=== PATIENT | female | born 1980 | race Two or more races ===

== ENCOUNTER 2024-08-29 09:25 | Inpatient (IN) | payer MEDICARE, OTHER ==
[~2024-08-29] VITALS: Ht 172.7 cm; Wt 47.1 kg
--- NOTE | 2024-08-29 09:55 | ED.PDOC ---
HPI Comments 44 year old female presents to the ED with chief complaint of chest pain. Patient reports that she has been experiencing chest pain since earlier today. Patient relays that she has history of a previous NM and angiogram along with DVT and blood clots. Patient states she had recently seen Dr. Smith and has an echo scheduled for this Wednesday. Patient notes that she has been without blood thinners for the past 3 months since running out and could not get any more due to being homeless during that time. Patient denies any SOB, dizziness, headache, N/V, numbness, or weakness. Chief Complaint: Chest Pain Time Seen by MD: 09:52 Reviewed Notes: Nurses Notes, Medications, Allergies Allergies: Coded Allergies: Hydromorphone (Verified Allergy, Unknown, 08/29/24) Morphine (Verified Allergy, Unknown, 08/29/24) Information Source: Patient Mode of Arrival: Ambulatory Severity: Moderate Timing: Hours Duration: Since onset Prehospital treatment: None Location: Chest (L) Radiation: No Radiation Quality: Sharp Onset: At Rest Cardiac Risk Factors: Diabetes PE Risk Factors: None History of: Similar pain in past, NM, DVT/PE Associated Signs and Symptoms: None Past Medical History PAST MEDICAL HISTORY: DM, Hypotension, NM Past Medical History (Other): DVT, Blood clots, Myocardial Bridge Surgical History: Denies all surgeries 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: Denies all 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 YEAST SUPERVISOR Hx Family History Family History: Reviewed,noncontributory to illness Social History Smoker: Non-Smoker Alcohol: Denies ETOH Use Drugs: Denies Drug Use Lives In: Home Constitutional: denies: chills, diaphoresis, fatigue, fever, malaise, sweats, weakness, others EENTM: denies: blurred vision, double vision, ear bleeding, ear discharge, ear drainage, ear pain, ear ringing, eye pain, eye redness, hearing loss, mouth pain, mouth swelling, nasal discharge, nose bleeding, nose congestion, nose pain, photophobia, tearing, throat pain, throat swelling, voice changes, others Respiratory: denies: cough, hemoptysis, orthopnea, SOB at rest, shortness of breath, SOB with excertion, stridor, wheezing, others Cardiovascular: reports: chest pain; denies: dizzy spells, diaphoresis, Dyspnea on exertion, edema, irregular heart beat, left arm pain, lightheadedness, palpitations, PND, syncope, others Gastrointestinal: denies: abdomen distended, abdominal pain, blood streaked bowels, constipated, diarrhea, dysphagia, difficulty swallowing, hematemesis, melena, nausea, poor appetite, poor fluid intake, rectal bleeding, rectal pain, vomiting, others Genitourinary: denies: abnormal vagina bleeding, burning, dyspareunia, dysuria, flank pain, frequency, hematuria, incontinence, pain, , vagina discharge, urgency, others Neurological: denies: dizziness, fainting, headache, left sided numbness, left sided weakness, numbness, paresthesia, pre-existing deficit, right sided numbness, right sided weakness, seizure, speech problems, tingling, tremors, weakness, others Musculoskeletal: denies: back pain, gout, joint pain, joint swelling, muscle pain, muscle stiffness, neck pain, others Integumetry: denies: bruises, change in color, change in hair/nails, dryness, laceration, lesions, lumps, rash, wounds, others Allergic/Immunocompromised: denies: Difficulty Healing, Frequent Infections, Hives, Itching, others Hematologic/Lymphatic: denies: anemia, blood clots, easy bleeding, easy bruising, swollen glands, others Endocrine: denies: excessive hunger, excessive sweating, excessive thirst, excessive urination, flushing, intolerance to cold, intolerance to heat, unexplained weight gain, unexplained weight loss, others All Other Systems: Reviewed and Negative Physical Exam General Appearance: Moderate Distress, Normal HEENT: Normal ENT Inspection, PERRL/EOMI Neck: Full Range of Motion, Non-Tender, Normal, Normal Inspection Respiratory: Chest Non-Tender, Lungs Clear, No Accessory Muscle Use, No Respiratory Distress, Normal Breath Sounds Cardiovascular: No Edema, No JVD, No Murmur, No Gallop, Normal Peripheral Pulses, Regular Rate/Rhythm Breast Exam: Deferred Gastrointestinal: No Organomegaly, Non Tender, No Pulsatile Mass, Normal Bowel Sounds, Soft Genitalia: Deferred Pelvic: Deferred Rectal: Deferred Extremities: No calf tenderness, Normal capillary refill, Normal inspection, Normal range of motion, Non-tender, No pedal edema Musculoskeletal : Apperance: Normal Neurologic: Alert, staff development manager II-XII nml as Tested, No Motor Deficits, Normal Affect, Normal Mood, No Sensory Deficits Cerebellar Function: Normal Reflexes: Normal Skin: Dry, Normal Color, Warm Peripheral Pulses: 3+ Radial (R), 3+ Radial (L) Lymphatic: No Adenopathy Was a procedure done? Was a procedure done?: No CP Differential Dx Differential Diagnosis: A-fib, A-Flutter, Angina, Anxiety / Panic Attack, Atrial Dysrhythmia, Electrolyte Disorder X-Ray, Labs, Meds, VS Vital Signs Date Time Temp Pulse Resp B/P (MAP) Pulse Ox O2 Delivery O2 Flow Rate FiO2 08/29/24 09:36 97 08/29/24 09:26 98.0 125 18 144/72 (96) 99 Lab Test 08/29/24 09:37 Range/Units White Blood Count Pending Red Blood Count Pending Hemoglobin Pending Hematocrit Pending Mean Corpuscular Volume Pending Mean Corpuscular Hemoglobin Pending Mean Corpuscular Hemoglobin Concent Pending Red Cell Distribution Width Pending Platelet Count Pending Mean Platelet Volume Pending Neutrophils (%) (Auto) Pending Lymphocytes (%) (Auto) Pending Monocytes (%) (Auto) Pending Basophils (%) (Auto) Pending Neutrophils # (Auto) Pending Lymphocytes # (Auto) Pending Monocytes # (Auto) Pending D-Dimer, Quantitative Pending Sodium Level Pending Potassium Level Pending Chloride Level Pending Carbon Dioxide Level Pending Anion Gap Pending Blood Urea Nitrogen Pending Creatinine Pending Glomerular Filtration Rate Calc Pending BUN/Creatinine Ratio Pending Serum Glucose Pending Calcium Level Pending Troponin I High Sensitivity Pending Patient alert. Complaining of chest pain. Vitals stable. She does not take care of herself. EKG reviewed does not show any acute changes. She is tachycardic. Chronic history. Was given aspirin. Echocardiogram. Explained to the patient. Continue cardiac monitoring. Time of 1ST Reevaluation: 10:52 Reevaluation 1ST: Unchanged Patient Education/Counseling: Diagnosis, Treatment Family Education/Counseling: No Family Present Additional Information I reviewed the following notes from patient's past medical encounters: None The following tests were ordered, and results were reviewed by me: EKG, Troponin, CBC, BMP, UA, D-Dimer Additional Information was gathered from interviewing the following independent historians: None I reviewed and agreed with the following test results read by other providers: None I discussed treatment and results with medical personnel. Departure 1 Departure Time of Disposition: 10:00 Impression: Primary Impression: Chest pain of unknown etiology Disposition: ADMITTED INPATIENT Admit to: Med Surg Condition: Guarded Critical Care Note Critical Care Time?: No Stability Stability form required: No Heart Score Heart Score: Heart Score Response (Comments) Value History Highly Suspicious 2 EKG Normal 0 Age 45-64 1 Risk Factors >3 or Hx ASHD 2 Troponin Normal limit 0 Total 5 I personally scribed for GIANCARLO ALVARADO MD ([email or web address]) on 08/29/24 at 09:55. Electronically submitted by Maxime Elliott ([email or web address]). GIANCARLO ALVARADO MD Aug 29, 2024 09:55
[2024-08-29 10:00] VITALS: PULSE 111; RESP 17; O2SAT 100
[2024-08-29 10:05] LABS: Basophils # (auto) 0 10 ^3/uL (0-0.2); Basophils % (auto) 0.3 % (0.0-2.0); Eosinophils # (auto) 0 10 ^3/uL (0-0.8); Eosinophils % (auto) 0.3 % (0.0-7.0); Hematocrit 43.7 % (36.0-46.0); Hemoglobin 14.5 g/dL (12.2-16.2); Lymphocytes # (auto) 2.4 10 ^3/uL (0.4-5.4); Mean Corpuscular Hemoglobin 28.9 pg (28.0-32.0); Mean Corpuscular Hgb Conc. 33.3 g/dL (32.0-36.0); Monocytes # (auto) 0.4 10 ^3/uL (0-1.3); Neutrophils % (auto) 58.4 % (37.0-80.0); Nucleated Red Blood Cells % 0.2 %; Platelet Count (auto) 252 10^3/uL (140-450); Red Blood Cells 5.02 10^6/uL (4.0-5.20); Red Cell Distribution Width 13.3 % (11.8-14.3); White Blood Cell 6.8 10^3/uL (4.4-10.8)
[2024-08-29 10:10] LABS: Chloride 103 mmol/L (98-107); Sodium 137 mmol/L (136-145)
[2024-08-29] MEDS: ASPirin 325 MG TAB PO ONE (10:10)
[2024-08-29 10:11] LABS: Anion Gap 9 (5-15); Calcium 10.2 mg/dL (8.7-10.4); Carbon Dioxide 25 mmol/L (20-31)
[2024-08-29 10:16] LABS: BUN/Creatinine Ratio 8.8 (10.0-20.0)
[2024-08-29 10:17] LABS: Blood Urea Nitrogen 8 mg/dL (9-23); Glucose 164 mg/dL (74-106); Potassium 3.5 mmol/L (3.5-5.1)
[2024-08-29 10:31] LABS: Urine Bacteria None Seen /hpf (None Seen)
[2024-08-29 11:25] LABS: Urine Blood Negative /uL (Negative); Urine Clarity Clear (Clear); Urine Color Colorless (Yellow); Urine Protein, UAD Negative (Negative); Urine Specific Gravity 1.002 (1.001-1.035); Urine Squamous Epithelial Cell FEW /hpf (<5); Urine Urobilinogen Normal (Negative); Urine WBC 1 /HPF (0-5); Urine pH 5.5 (5.0-9.0)
[2024-08-29] MEDS ORDERED: DEXTROSE (50%) 50ML SYRG IV PRN (15:15)
--- NOTE | 2024-08-29 15:24 | DVH ---
CHEST RADIOGRAPH Indication: chest pain Technique: Single frontal view of the chest was obtained COMPARISON: None FINDINGS: Lines and Tubes: None Lungs: Clear Pleura: No effusion. No pneumothorax. Cardiomediastinal contours: Unremarkable Bones: Unremarkable IMPRESSION: No acute disease.
[2024-08-29 15:44] LABS: Cholesterol 175 mg/dL (< 200); HDL Cholesterol 44 mg/dL (40-59)
[2024-08-29 15:52] LABS: LDL Cholesterol 108 mg/dL (< 100); Triglycerides 197 mg/dL (< 150)
[2024-08-29] MEDS ORDERED: ONDANSETRON HCL 4 MG/2 ML VIAL IV PRN (16:00)
[2024-08-29] MEDS ORDERED: NITROGLYCERIN 0.4 MG SL TAB SL PRN ×2 (16:00)
--- NOTE | 2024-08-29 16:35 | DVHHP2 ---
History of Present Illness Reason for Visit: Chest pain History of Present Illness Charleen Thompson is a 44-year-old female with past medical history of diabetes, [place] about 1.5 years ago, myocardial bridge, seizure, bipolar disorder, DVT in the left lower extremity and left upper arm, uterine ablation, cholecystectomy, and ECT who presents to the ED with chest pain, left arm tingling, nausea, vomiting, diarrhea, dizziness, and blurred vision. Patient states that her chest pain is 7/10, midsternal, pressure-like constant and radiates to her left arm. Patient reports that lying down on her right side helps relieve the pain. She states that there are no triggering factors. She also reports that she has not been on her blood thinners Eliquis for over 3 months due to being homeless and recently moved from [facility]. Patient reports that she lives with her fiance with a roommate. She also reports that she smokes about half a pack of cigarettes per day, drinks occasionally, and uses cocaine. Patient [facility] and was attempting to get Wegovy and Ozempic but was told that they can not supplied to her because of insurance issues and advised her to come to [facility] ED. patient denies any recent illnesses, recent sick contacts, shortness of breath, abdominal pain, fever, chills, lightheadedness, and weakness. Cardiovascular: [place] REPAIR TECHNICIAN: Seizure Psych: Bipolar Endocrine: Diabetes Past Medical History DVT left lower extremity and left upper arm Myocardial bridge Past Surgical History: Cholecystectomy, Other (Uterine ablation and ECT) Family History: CVA, Other (Dad and daughter with history of CVA) Smoke: <1 pack per day ALCOHOL: occassional Drugs: Cocaine Lives: Roommate Domestic Violence: Neg Review of Systems Constitutional: Yes: Other (Dizziness); No: Fever, Chills, Sweats, Weakness, Malaise Eyes: Vision change; No: Pain, Conjunctivae inflammation, Eyelid inflammation, Other, Redness ENT: No: Ear pain, Ear discharge, Nose pain, Nose discharge, Nose congestion, Mouth pain, Mouth swelling, Throat pain, Throat swelling, Other Respiratory: No: Cough, Dry, Shortness of breath, SOB with excertion, Wheezing, Hemoptysis, Pleuritic Pain, Sputum, Wheezing, Other Cardiovascular: Chest Pain; No: Palpitations, Orthopnea, Paroxysmal Noc. Dyspnea, Edema, Lt Headedness, Other Gastrointestinal: Nausea, Vomiting, Diarrhea; No: Abdominal Pain, Constipation, Melena, Hematochezia, Other Genitourinary: No Dysuria, No Frequency, No Incontinence, No Hematuria, No Retention, No Other Musculoskeletal: No: other, neck pain, shoulder pain, arm pain, back pain, hand pain, leg pain, foot pain Skin: No: Rash, Lesions, Jaundice, Bruising, Other Neurological: Other (Left arm tingling); No: Weakness, Numbness, Incoordination, Change in speech, Confusion, Seizures Allergies: Coded Allergies: Hydromorphone (Verified Allergy, Unknown, 08/29/24) Morphine (Verified Allergy, Unknown, 08/29/24) Medications Current Medications Medications Dose Ordered Sig/Liset Route Start Time Stop Time Status Last Admin Dose Admin Diagnostic Test (Pha) 1 strip ACHS 08/29/24 17:00 Insulin Human Regular ACHS SC 08/29/24 17:00 Dextrose 50 ml UD PRN IV 08/29/24 15:15 Aspirin 81 mg DAILY PO 08/30/24 10:00 UNV Exam Vital Signs Vital Signs Date Time Temp Pulse Resp B/P (MAP) Pulse Ox O2 Delivery O2 Flow Rate FiO2 08/29/24 13:51 98.3 99 16 128/99 (109) 99 98.3 08/29/24 10:00 Room Air* 0 21 General Appearance: Alert, Oriented X3, Cooperative, No acute distress HEENT: Atraumatic, PERRLA, EOMI, Other (Poor dentition and missing teeth) Respiratory: Clear to auscultation, Normal air movement Cardiovascular: Normal S1, Normal S2, No murmurs Abdominal: Normal bowel sounds, Soft, No tenderness, No hepatospenomegaly, No masses Extremities: No clubbing, No cyanosis, No edema, Normal pulses, No tenderness/swelling Skin: No breakdown, No significant lesion Neuro: Normal gait, Normal speech, Strength at 5/5 X4 ext, Normal tone, Sensation intact Psych/Mental Status: Mental status NL, Mood NL Labs/Xrays Labs Test 08/29/24 10:46 08/29/24 10:12 08/29/24 09:37 Range/Units Troponin I High Sensitivity < 3 L </=34 ng/L Urine Color Colorless Yellow Urine Clarity Clear Clear Urine pH 5.5 5.0-9.0 Urine Specific [place] 1.002 1.001-1.035 Urine Protein Negative Negative Urine Ketones Negative Negative Urine Blood Negative Negative /uL Urine Nitrite Negative Negative Urine Bilirubin Negative Negative Urine Urobilinogen Normal Negative mg/dL Urine Leukocyte Esterase Trace Negative /uL Urine RBC <1 0 - 4 /hpf Urine Microscopic WBC 1 0-5 /HPF Urine Squamous Epithelial Cells Few <5 /hpf Urine Bacteria None seen None Seen /hpf Urine Glucose Normal Normal mg/dL White Blood Count 6.8 4.4-10.8 10^3/uL Red Blood Count 5.02 4.0-5.20 10^6/uL Hemoglobin 14.5 12.2-16.2 g/dL Hematocrit 43.7 36.0-46.0 % Mean Corpuscular Volume 87.0 80.0-100.0 fL Mean Corpuscular Hemoglobin 28.9 28.0-32.0 pg Mean Corpuscular Hemoglobin Concent 33.3 32.0-36.0 g/dL Red Cell Distribution Width 13.3 11.8-14.3 % Platelet Count 252 140-450 10^3/uL Mean Platelet Volume 8.6 6.9-10.8 fL Neutrophils (%) (Auto) 58.4 37.0-80.0 % Lymphocytes (%) (Auto) 35.0 10.0-50.0 % Monocytes (%) (Auto) 6.0 0.0-12.0 % Eosinophils (%) (Auto) 0.3 0.0-7.0 % Basophils (%) (Auto) 0.3 0.0-2.0 % Neutrophils # (Auto) 4.0 1.6-8.6 10 ^3/uL Lymphocytes # (Auto) 2.4 0.4-5.4 10 ^3/uL Monocytes # (Auto) 0.4 0-1.3 10 ^3/uL Eosinophils # (Auto) 0 0-0.8 10 ^3/uL Basophils # (Auto) 0 0-0.2 10 ^3/uL Nucleated Red Blood Cells 0.2 % D-Dimer, Quantitative 0.32 0.0-0.49 mg/L FEU Sodium Level 137 136-145 mmol/L Potassium Level 3.5 3.5-5.1 mmol/L Chloride Level 103 98-107 mmol/L Carbon Dioxide Level 25 20-31 mmol/L Anion Gap 9 5-15 Blood Urea Nitrogen 8 L 9-23 mg/dL Creatinine 0.91 0.550-1.02 mg/dL Glomerular Filtration Rate Calc 79 >90 mL/min BUN/Creatinine Ratio 8.8 L 10.0-20.0 Serum Glucose 164 H 74-106 mg/dL Hemoglobin A1c 7.4 H <5.7 % A1C Calcium Level 10.2 8.7-10.4 mg/dL Triglycerides Level 197 H < 150 mg/dL Cholesterol Level 175 < 200 mg/dL LDL Cholesterol 108 H < 100 mg/dL HDL Cholesterol 44 40-59 mg/dL Thyroid Stimulating Hormone (TSH) 2.76 0.55-4.78 uIU/mL CHEST RADIOGRAPH Indication: chest pain Technique: Single frontal view of the chest was obtained COMPARISON: None FINDINGS: Lines and Tubes: None Lungs: Clear Pleura: No effusion. No pneumothorax. Cardiomediastinal contours: Unremarkable Bones: Unremarkable IMPRESSION: No acute disease. Assessment/Plan Assessment/Plan Assessment/Plan: Chest pain rule out cardiac ischemia likely drug-induced Palpitations History of [place] History of myocardial bridge UA EKG Aspirin given in ED D-dimer negative EKG Troponin negative x2 Chest x-ray TSH UDS Lipid panel ACS protocol Aspirin Statin Echo ordered Mag level CT head Labs A.m. labs Diabetes type 2 uncontrolled Hemoglobin A1c ISS and Accu-Cheks History of DVTs Lovenox FEN/PPX Diet Hep-Lock DVT ppx - Lovenox PUD prophylaxis -not indicated patient no history of GI bleed or GERD Discussed plan of care with patient and nurse No medications to reconcile Admit to telemetry Plan discussed with: Patient My Orders Orders - RAFAEL ROGERS UX DESIGN LEAD Procedure Category Date Status Time Chest Xray 1 View XY 08/29/24 Resulted 15:06 Drug Screen LAB 08/29/24 Logged 15:06 Glucose Blood PHA 08/29/24 In Process (Accu-Chek Comfort 17:00 Insulin R (Human) PHA 08/29/24 In Process (Insulin R) 17:00 Dextrose 50% Syringe PHA 08/29/24 In Process 15:15 Echo 2d Mode Cardiac US 08/29/24 Logged DOP 15:59 Chest Xray 1 View XY 08/29/24 Logged 15:59 Thyroid Stimulating LAB 08/29/24 Transmitted Hormone 15:59 Drug Screen LAB 08/29/24 Transmitted 15:59 Lipid Panel LAB 08/29/24 Transmitted 15:59 Admit ADMIT 08/29/24 Transmitted 15:59 Code Status CODE 08/29/24 Transmitted 15:59 Vital Signs ISIDRA 08/29/24 In Process 15:59 Floodplain Manager ISIDRA 08/29/24 In Process 15:59 Cardiac DIET 08/29/24 Transmitted Diet-2gna,Lofat,Lochol Dinner Aspirin Tablet PHA 08/30/24 Transmitted 10:00 Lipitor 40mg Hs PHA 08/29/24 Transmitted Hi-Intensity 22:00 Acetaminophen Tablet PHA 08/29/24 Transmitted (Tylenol Tablet) 16:00 Complete Blood Count LAB 08/30/24 Verified 04:00 Comprehensive LAB 08/30/24 Verified Metabolic Panel 04:00 Education - Smoking ISIDRA 08/29/24 In Process Cessation 15:59 Nitroglycerin PHA 08/29/24 Transmitted Sublingual (Ntrostat 16:00 Ondansetron Hcl PHA 08/29/24 Transmitted (Zofran) 16:00 Electrocardigram EKG 08/30/24 Logged 04:00 Troponin-I Hs LAB 08/29/24 Transmitted 15:59 Cardiac ISIDRA 08/29/24 In Process Rehabilitation - Outpa Nitroglycerin PHA 08/29/24 Transmitted Sublingual (Ntrostat 16:00 Stat Ekg For Chest [facility] 08/29/24 In Process Pain 15:59 Notify Of Changes [facility] 08/29/24 In Process From Base 15:59 Sap Plant Maintenance Consultant For [facility] 08/29/24 In Process 24 Hours 15:59 Emergency Dysrhythmia [facility] 08/29/24 In Process Protocol 15:59 Rhythm Strips Once [facility] 08/29/24 In Process Every Shift 15:59 Oxygen By Nasal RT 08/29/24 Transmitted Cannula 15:59 Magnesium LAB 08/29/24 Transmitted 15:59 Date of Service: Aug 29, 2024 Billing Provider: RAFAEL ROGERS Common Visit Codes: [id number] INP/OBS CARE (HIGH) RAFAEL ROGERS Aug 29, 2024 16:35
--- NOTE | 2024-08-29 16:40 | DVH ---
EXAM: CT HEAD WITHOUT CONTRAST HISTORY: blurred vision COMPARISON: None TECHNIQUE: Axial images of the head were obtained and reformatted in coronal and sagittal planes. All CT scans at this medical facility are performed using dose modulation techniques as appropriate t o a performed exam including the following: Automated exposure control was utilized; adjustment of th e MA and/or KV according to patient size; and use of iterative reconstruction technique. CT Dose: CTDI volume is 60.99 mGy. Dose-length product is 1079.61 mGy*cm FINDINGS: There is no evidence of acute intracranial hemorrhage, mass, mass effect midline shift. There is no h ydrocephalus or extra-axial fluid collection. Rios-white matter differentiation is maintained. The visualized paranasal sinuses and mastoid air cells are clear. The calvarium is intact. IMPRESSION: 1. No acute intracranial process. HS:Y
[2024-08-29] MEDS: InsuLIN REG 1unit/0.01ml Soln (100units/ml) SC SCH (16:59)
[2024-08-29] MEDS: ENOXAPARIN SOD 40 MG/0.4 ML SYRINGE SC ONE (16:59)
[2024-08-29] MEDS: ACCU-CHEK COMFORT CURVE STRIP VI SCH (17:02)
[2024-08-29] MEDS: ACETAMINOPHEN 325 MG TAB PO PRN (17:05)
[2024-08-29 17:17] LABS: Amphetamine Screen, Urine Neg (NEGATIVE); Barbiturate Scree,Urine Neg (NEGATIVE); Benzodiazephine Screen, Urine Neg (NEGATIVE); Cannabinoid Screen, Urine Neg (NEGATIVE); Cocaine Screen, Urine Neg (NEGATIVE); Opiate Scree,Urine Neg (NEGATIVE); Phencyclidine Screen, Urine Neg (NEGATIVE)
--- NOTE | 2024-08-29 20:45 | ECG ---
[facility] Test Date: 2024-08-29 Test Time: 09:36:19 Pat Name: PHOEBE JEAN-BAPTISTE Department: ER Room: [facility] Gender: F Shipwright Helper: CORINA : 1980 Requested By: GIANCARLO ALVARADO Order Number: [id number] Reading MD: Marcell Murillo Measurements Intervals [place] Rate: 97 P: 69 SD: 129 QRS: -1 QRSD: 94 T: 46 QT: 357 QTc: 454 Interpretive Statements Sinus rhythm Borderline repolarization abnormality Electronically Signed On 08-31-2024 16:36:37 PST by Marcell Murillo Please click the below link to view image of tracing.
[2024-08-29 22:12] VITALS: BP 121/70; PULSE 83; RESP 17; TEMP 97.6; O2SAT 99
[2024-08-29 22:21] VITALS: PULSE 83; RESP 17; O2SAT 99
[2024-08-29] MEDS: ATORVASTATIN 20 MG TAB PO SCH (22:56)
[2024-08-30] VITALS (9 sets, daily range): BP systolic 95–116; BP diastolic 49–69; PULSE 67–92; RESP 16–20; TEMP 97.4–98.9; O2SAT 97–99
[2024-08-30 06:57] LABS: Alanine Aminotransferase 27 U/L (7-40); Albumin 4.2 g/dL (3.2-4.8); Alkaline Phosphatase 82 U/L (46-116); Anion Gap 8 (5-15); Aspartate Aminotransferase 21 U/L (13-40); Calcium 9.9 mg/dL (8.7-10.4); Carbon Dioxide 25 mmol/L (20-31); Chloride 107 mmol/L (98-107); Potassium 3.7 mmol/L (3.5-5.1); Sodium 140 mmol/L (136-145)
[2024-08-30 06:58] LABS: Total Protein 6.7 g/dL (5.7-8.2)
[2024-08-30 07:00] LABS: Basophils # (auto) 0 10 ^3/uL (0-0.2); Basophils % (auto) 0.5 % (0.0-2.0); Eosinophils # (auto) 0 10 ^3/uL (0-0.8); Eosinophils % (auto) 0.4 % (0.0-7.0); Hematocrit 39.8 % (36.0-46.0); Hemoglobin 13.4 g/dL (12.2-16.2); Lymphocytes # (auto) 1.6 10 ^3/uL (0.4-5.4); Lymphocytes % (auto) 31.1 % (10.0-50.0); Mean Corpuscular Hemoglobin 29.5 pg (28.0-32.0); Mean Corpuscular Hgb Conc. 33.7 g/dL (32.0-36.0); Mean Corpuscular Volume 87.4 fL (80.0-100.0); Monocytes # (auto) 0.4 10 ^3/uL (0-1.3); Monocytes % (auto) 7.4 % (0.0-12.0); Neutrophils # (auto) 3.1 10 ^3/uL (1.6-8.6); Neutrophils % (auto) 60.6 % (37.0-80.0); Nucleated Red Blood Cells % 0.2 %; Platelet Count (auto) 213 10^3/uL (140-450); Red Blood Cells 4.55 10^6/uL (4.0-5.20); Red Cell Distribution Width 13.3 % (11.8-14.3); White Blood Cell 5.1 10^3/uL (4.4-10.8)
[2024-08-30 07:05] LABS: Bilirubin, Total 1.5 mg/dL (0.2-1.0); Blood Urea Nitrogen 8 mg/dL (9-23); Glucose 166 mg/dL (74-106)
[2024-08-30] MEDS: ASPirin 81 mg TAB PO SCH (08:42)
[2024-08-30] MEDS: ENOXAPARIN SOD 40 MG/0.4 ML SYRINGE SC SCH (08:43)
--- NOTE | 2024-08-30 13:48 | DVHPN2 ---
Reviewed: Care Plan, H&P, Labs, Medications, Previous Orders, Radiology Changes from previous H/P or p: No Changes Eyes: No Pain; Vision change; No Conjunctivae inflammation, No Eyelid inflammation, No Other, No Redness ENT: No Ear pain, No Ear discharge, No Nose pain, No Nose discharge, No Nose congestion, No Mouth pain, No Mouth swelling, No Throat pain, No Throat swelling, No Other Cardiovascular: Chest Pain; No Palpitations, No Orthopnea, No Paroxysmal Noc. Dyspnea, No Edema, No Lt Headedness, No Other Respiratory: No Cough, No Dry, No Shortness of breath, No SOB with excertion, No Wheezing, No Hemoptysis, No Pleuritic Pain, No Sputum, No Other Gastrointestinal: Nausea, Vomiting; No Abdominal Pain; Diarrhea; No Constipation, No Melena, No Hematochezia, No Other Genitourinary: No Dysuria, No Frequency, No Incontinence, No Hematuria, No Retention, No Other Musculoskeletal: No other, No neck pain, No shoulder pain, No arm pain, No back pain, No hand pain, No leg pain, No foot pain Skin: No Rash, No Lesions, No Jaundice, No Bruising, No Other Objective Vitals Vital Signs Date Time Temp Pulse Resp B/P (MAP) Pulse Ox O2 Delivery O2 Flow Rate FiO2 08/30/24 13:00 98.9 79 20 102/55 (71) 99 98.9 08/30/24 08:10 Room Air* 0 21 Intake/Output Intake and Output 08/30/24 07:00 Intake Total 260 ml Balance 260 ml Intake Oral 260 ml Medications Current Medications Medications Dose Ordered Sig/Liset Route Start Time Stop Time Status Last Admin Dose Admin Diagnostic Test (Pha) 1 strip ACHS 08/29/24 17:00 08/30/24 11:08 1 STRIP Insulin Human Regular ACHS SC 08/29/24 17:00 08/30/24 11:33 3 UNITS Dextrose 50 ml UD PRN IV 08/29/24 15:15 Aspirin 81 mg DAILY PO 08/30/24 10:00 08/30/24 08:42 81 MG Atorvastatin Calcium 40 mg HS PO 08/29/24 22:00 08/29/24 22:56 40 MG Acetaminophen 650 mg Q6HP PRN PO 08/29/24 16:00 08/29/24 22:55 650 MG Nitroglycerin 0.4 mg Q5MINP PRN SL 08/29/24 16:00 UNV Ondansetron HCl 4 mg Q4HP PRN IV 08/29/24 16:00 Nitroglycerin 0.4 mg Q5MINP PRN SL 08/29/24 16:00 Enoxaparin Sodium 40 mg DAILY SC 08/30/24 10:00 08/30/24 08:43 40 MG Laboratory Results Laboratory Tests 08/30/24 05:49 Chemistry Test 08/30/24 05:49 Albumin 4.2 g/dL (3.2-4.8) Calcium Level 9.9 mg/dL (8.7-10.4) Total Protein 6.7 g/dL (5.7-8.2) LFT Test 08/30/24 05:49 Alanine Aminotransferase (ALT) 27 U/L (7-40) Alkaline Phosphatase 82 U/L (46-116) Aspartate Amino Transferase (AST) 21 U/L (13-40) Total Bilirubin 1.5 mg/dL (0.2-1.0) H Urinalysis Test 08/29/24 10:12 Urine Color Colorless (Yellow) Urine Clarity Clear (Clear) Urine pH 5.5 (5.0-9.0) Urine Specific [place] 1.002 (1.001-1.035) Urine Protein Negative (Negative) Urine Ketones Negative (Negative) Urine Blood Negative /uL (Negative) Urine Nitrite Negative (Negative) Urine Bilirubin Negative (Negative) Urine Urobilinogen Normal mg/dL (Negative) Urine Leukocyte Esterase Trace /uL (Negative) Urine RBC <1 /hpf (0 - 4) Urine Microscopic WBC 1 /HPF (0-5) Urine Squamous Epithelial Cells Few /hpf (<5) Urine Bacteria None seen /hpf (None Seen) Urine Glucose Normal mg/dL (Normal) Labs and/or images reviewed: Labs reviewed by me, Image(s) reviewed by me Assessment/Plan Assessment/Plan Acute Chest pain rule out cardiac ischemia likely drug-induced, troponin negative, cardiology consult, treatment per ACS protocol Palpitations History of [place] History of myocardial bridge Diabetes History of seizures: Lamictal History of DVT left upper and lower extremity: Ran out of Eliquis, put back on Eliquis and venous ultrasound ordered Plan discussed with: Patient Date of Service: Aug 30, 2024 Billing Provider: MAIRA CHIU MD Common Visit Codes: [id number] INP/OBS CARE(HIGH) MAIRA CHIU MD Aug 30, 2024 13:48
[2024-08-30] MEDS: APIXABAN 5 MG TAB PO ONE (15:17)
--- NOTE | 2024-08-30 17:30 | DVH ---
LEFT LOWER EXTREMITY VENOUS DOPPLER CLINICAL HISTORY: HISTORY OF DVT TECHNIQUE: Lower extremity venous Doppler study was performed. COMPARISON: None FINDINGS: The left common femoral, superficial femoral, popliteal, posterior tibial veins and trifurcation ap pear patent with normal augmentation, phasicity, compressibility and color-flow. . IMPRESSION: 1. No sonographic evidence of DVT in the left leg. HS:Y
--- NOTE | 2024-08-30 17:34 | DVH ---
BILATERAL UPPER EXTREMITY VENOUS DOPPLER CLINICAL HISTORY: HISTORY DVT TECHNIQUE: Upper extremity venous Doppler study was performed. Comparison: None FINDINGS: The left internal jugular, subclavian, axillary, brachial, basilic, cephalic, radial and ulnar veins appear patent with normal augmentation, phasicity, compressibility and color-flow. IMPRESSION: 1. No sonographic evidence of DVT in the left upper extremity. HS:Y
[2024-08-30] MEDS: APIXABAN 5 MG TAB PO SCH (22:50)
[2024-08-31] VITALS (9 sets, daily range): BP systolic 96–146; BP diastolic 49–61; PULSE 67–86; RESP 16–19; TEMP 97.5–97.9; O2SAT 95–100
[2024-08-31] MEDS: lamoTRIgine 100 MG TAB PO SCH (09:42)
--- NOTE | 2024-08-31 11:10 | DVHPN2 ---
Reviewed: Care Plan, H&P, Labs, Medications, Previous Orders, Radiology Changes from previous H/P or p: No Changes Eyes: No Pain; Vision change; No Conjunctivae inflammation, No Eyelid inflammation, No Other, No Redness ENT: No Ear pain, No Ear discharge, No Nose pain, No Nose discharge, No Nose congestion, No Mouth pain, No Mouth swelling, No Throat pain, No Throat swelling, No Other Cardiovascular: Chest Pain; No Palpitations, No Orthopnea, No Paroxysmal Noc. Dyspnea, No Edema, No Lt Headedness, No Other Respiratory: No Cough, No Dry, No Shortness of breath, No SOB with excertion, No Wheezing, No Hemoptysis, No Pleuritic Pain, No Sputum, No Other Gastrointestinal: Nausea, Vomiting; No Abdominal Pain; Diarrhea; No Constipation, No Melena, No Hematochezia, No Other Genitourinary: No Dysuria, No Frequency, No Incontinence, No Hematuria, No Retention, No Other Musculoskeletal: No other, No neck pain, No shoulder pain, No arm pain, No back pain, No hand pain, No leg pain, No foot pain Skin: No Rash, No Lesions, No Jaundice, No Bruising, No Other Objective Vitals Vital Signs Date Time Temp Pulse Resp B/P (MAP) Pulse Ox O2 Delivery O2 Flow Rate FiO2 08/31/24 09:00 97.7 86 19 102/61 (75) 96 97.7 08/30/24 20:00 Room Air* 0 21 Intake/Output Intake and Output 08/31/24 07:00 Intake Total 1100 ml Output Total 0 ml Balance 1100 ml Intake Oral 1100 ml Output Urine Total 0 ml # Voids 2 # Bowel Movements 2 Medications Current Medications Medications Dose Ordered Sig/Liset Route Start Time Stop Time Status Last Admin Dose Admin Diagnostic Test (Pha) 1 strip ACHS 08/29/24 17:00 08/31/24 07:51 1 STRIP Insulin Human Regular ACHS SC 08/29/24 17:00 08/31/24 07:52 3 UNITS Dextrose 50 ml UD PRN IV 08/29/24 15:15 Aspirin 81 mg DAILY PO 08/30/24 10:00 08/31/24 09:42 81 MG Atorvastatin Calcium 40 mg HS PO 08/29/24 22:00 08/30/24 22:49 40 MG Acetaminophen 650 mg Q6HP PRN PO 08/29/24 16:00 08/29/24 22:55 650 MG Nitroglycerin 0.4 mg Q5MINP PRN SL 08/29/24 16:00 UNV Ondansetron HCl 4 mg Q4HP PRN IV 08/29/24 16:00 Nitroglycerin 0.4 mg Q5MINP PRN SL 08/29/24 16:00 Enoxaparin Sodium 40 mg DAILY SC 08/30/24 10:00 08/30/24 08:43 40 MG Apixaban 5 mg BID PO 08/30/24 22:00 08/31/24 09:42 5 MG Lamotrigine 100 mg DAILY PO 08/31/24 10:00 08/31/24 09:42 100 MG Laboratory Results Laboratory Tests 08/30/24 05:49 Urinalysis Test 08/29/24 10:12 Urine Color Colorless (Yellow) Urine Clarity Clear (Clear) Urine pH 5.5 (5.0-9.0) Urine Specific [place] 1.002 (1.001-1.035) Urine Protein Negative (Negative) Urine Ketones Negative (Negative) Urine Blood Negative /uL (Negative) Urine Nitrite Negative (Negative) Urine Bilirubin Negative (Negative) Urine Urobilinogen Normal mg/dL (Negative) Urine Leukocyte Esterase Trace /uL (Negative) Urine RBC <1 /hpf (0 - 4) Urine Microscopic WBC 1 /HPF (0-5) Urine Squamous Epithelial Cells Few /hpf (<5) Urine Bacteria None seen /hpf (None Seen) Urine Glucose Normal mg/dL (Normal) Labs and/or images reviewed: Labs reviewed by me, Image(s) reviewed by me Assessment/Plan Assessment/Plan Acute Chest pain rule out cardiac ischemia likely drug-induced, troponin negative, 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, treatment per ACS protocol Palpitations echocardiogram result pending History of [place] History of myocardial bridge Diabetes History of seizures: Lamictal History of DVT left upper and lower extremity: Ran out of Eliquis, Venous ultrasound negative for DVT of the left upper extremity and negative for DVT of left lower extremity Plan discussed with: Patient My Orders Orders - MAIRA CHIU MD Procedure Category Date Status Time Apixaban (Eliquis) PHA 08/30/24 In Process 22:00 Lamotrigine Tablet PHA 08/31/24 In Process (Lamictal Tablet) 10:00 * Web Production Manager CONS 08/30/24 Transmitted Consult Lt Lower Dvt US 08/30/24 Resulted 13:57 Lt Upper Dvt US 08/30/24 Resulted 13:57 Date of Service: Aug 31, 2024 Billing Provider: MAIRA CHIU MD Common Visit Codes: [id number] INP/OBS CARE(HIGH) MAIRA CHIU MD Aug 31, 2024 11:10
--- NOTE | 2024-08-31 12:48 | DVHPN2 ---
Progress Note - Dictate Date Seen: Aug 31, 2024 Medical Necessity Reason Pt with a Central, PICC or Fol: No Subjective PT WITH HX OF MYOCARDIAL BRIDGE NOW WITH CP SHE HAD UNDERGONE LHC/ CT OF CHEST AT [facility] [place] CONFIRMING MYOCARDIAL BRIDGE TROPONIN NEGATIVE TOX SCREEN NEGATIVE HXOF SEIZURES DIABETES NPHROPATHY NEUROPATHY vital signs Vital Sign Date Time Temp Pulse Resp B/P (MAP) Pulse Ox O2 Delivery O2 Flow Rate FiO2 08/31/24 09:00 97.7 86 19 102/61 (75) 96 97.7 08/30/24 20:00 Room Air* 0 21 Total Intake and Output 08/30/24 08/30/24 08/31/24 15:00 23:00 07:00 Intake Total 800 ml 300 ml Output Total 0 ml Balance 800 ml 300 ml medications Current Medications Medications Dose Ordered Sig/Liset Route Start Time Stop Time Status Last Admin Dose Admin Diagnostic Test (Pha) 1 strip ACHS 08/29/24 17:00 08/31/24 11:30 1 STRIP Insulin Human Regular ACHS SC 08/29/24 17:00 08/31/24 12:18 2 UNITS Dextrose 50 ml UD PRN IV 08/29/24 15:15 Aspirin 81 mg DAILY PO 08/30/24 10:00 08/31/24 09:42 81 MG Atorvastatin Calcium 40 mg HS PO 08/29/24 22:00 08/30/24 22:49 40 MG Acetaminophen 650 mg Q6HP PRN PO 08/29/24 16:00 08/29/24 22:55 650 MG Nitroglycerin 0.4 mg Q5MINP PRN SL 08/29/24 16:00 UNV Ondansetron HCl 4 mg Q4HP PRN IV 08/29/24 16:00 Nitroglycerin 0.4 mg Q5MINP PRN SL 08/29/24 16:00 Enoxaparin Sodium 40 mg DAILY SC 08/30/24 10:00 08/30/24 08:43 40 MG Apixaban 5 mg BID PO 08/30/24 22:00 08/31/24 09:42 5 MG Lamotrigine 100 mg DAILY PO 08/31/24 10:00 08/31/24 09:42 100 MG laboratory and microbiology Laboratory Tests 08/30/24 05:49 Test 08/30/24 05:49 Range/Units Serum Glucose 166 H 74-106 mg/dL Problem List HX OF MYOCARDIAL BRIDGE NOW WITH CP SHE HAD UNDERGONE LHC/ CT OF CHEST AT [facility] [place] CONFIRMING MYOCARDIAL BRIDGE TROPONIN NEGATIVE TOX SCREEN NEGATIVE HXOF SEIZURES DIABETES NPHROPATHY NEUROPATHY Assessment/Plan TITRATE BETA AINSLEY Plan discussed with: Patient Critical Care Time(min): 35 DARLENE ELDRIDGE MD Aug 31, 2024 12:48
--- NOTE | 2024-08-31 12:48 | DVHPN2 ---
Progress Note - Dictate Date Seen: Aug 20, 2023 Medical Necessity Reason Pt with a Central, PICC or Fol: No Subjective PT WITH HX OF MYOCARDIAL BRIDGE NOW WITH CP SHE HAD UNDERGONE LHC/ [place] [facility] [place]FIRMING MYOCARDIAL BRIDGE TROPONIN NEGATIVE TOX SCREEN NEGATIVE HXOF SEIZURES DIABETES NPHROPATHY NEUROPATHY vital signs Vital Sign Date Time Temp Pulse Resp B/P (MAP) Pulse Ox O2 Delivery O2 Flow Rate FiO2 08/31/24 09:00 97.7 86 19 102/61 (75) 96 97.7 08/30/24 20:00 Room Air* 0 21 Total Intake and Output 08/30/24 08/30/24 08/31/24 15:00 23:00 07:00 Intake Total 800 ml 300 ml Output Total 0 ml Balance 800 ml 300 ml medications Current Medications Medications Dose Ordered Sig/Liset Route Start Time Stop Time Status Last Admin Dose Admin Diagnostic Test (Pha) 1 strip ACHS 08/29/24 17:00 08/31/24 11:30 1 STRIP Insulin Human Regular ACHS SC 08/29/24 17:00 08/31/24 12:18 2 UNITS Dextrose 50 ml UD PRN IV 08/29/24 15:15 Aspirin 81 mg DAILY PO 08/30/24 10:00 08/31/24 09:42 81 MG Atorvastatin Calcium 40 mg HS PO 08/29/24 22:00 08/30/24 22:49 40 MG Acetaminophen 650 mg Q6HP PRN PO 08/29/24 16:00 08/29/24 22:55 650 MG Nitroglycerin 0.4 mg Q5MINP PRN SL 08/29/24 16:00 UNV Ondansetron HCl 4 mg Q4HP PRN IV 08/29/24 16:00 Nitroglycerin 0.4 mg Q5MINP PRN SL 08/29/24 16:00 Enoxaparin Sodium 40 mg DAILY SC 08/30/24 10:00 08/30/24 08:43 40 MG Apixaban 5 mg BID PO 08/30/24 22:00 08/31/24 09:42 5 MG Lamotrigine 100 mg DAILY PO 08/31/24 10:00 08/31/24 09:42 100 MG laboratory and microbiology Laboratory Tests 08/30/24 05:49 Test 08/30/24 05:49 Range/Units Serum Glucose 166 H 74-106 mg/dL Problem List HX OF MYOCARDIAL BRIDGE NOW WITH CP SHE HAD UNDERGONE LHC/ [place] [facility] [place] CONFIRMING MYOCARDIAL BRIDGE TROPONIN NEGATIVE TOX SCREEN NEGATIVE HXOF SEIZURES DIABETES NPHROPATHY NEUROPATHY Assessment/Plan TITRATE BETA AINSLEY Plan discussed with: Patient Critical Care Time(min): 35 DARLENE ELDRIDGE MD Aug 31, 2024 12:47
[2024-09-01 01:00] VITALS: BP 102/61; PULSE 74; RESP 18; TEMP 97.8; O2SAT 100
[2024-09-01 05:00] VITALS: BP 109/64; PULSE 66; RESP 17; TEMP 97.6; O2SAT 95
[2024-09-01 08:00] VITALS: PULSE 103; PULSE 58; RESP 18; O2SAT 98
[2024-09-01 09:00] VITALS: BP 110/70; PULSE 103; RESP 18; TEMP 97.6; O2SAT 98
[2024-09-01] MEDS: METOPROLOL SUCCINATE XL 50 MG TAB PO SCH (10:36)
[2024-09-01] MEDS ORDERED: LAM100T PO (11:31)
[2024-09-01] MEDS ORDERED: APIX5TAB PO (11:31)
--- NOTE | 2024-09-01 11:34 | DVHDS2 ---
Discharge Summary Date of Admission Aug 29, 2024 at 15:59 Date of Discharge: Sep 01, 2024 Admitting Diagnosis Chest pain Wounds: None Labs/Diagnostic Data: Laboratory Results Test 08/31/24 21:50 08/30/24 05:49 08/29/24 10:46 08/29/24 10:12 POC Glucose 219 mg/dl (70-106) White Blood Count 5.1 10^3/uL (4.4-10.8) Red Blood Count 4.55 10^6/uL (4.0-5.20) Hemoglobin 13.4 g/dL (12.2-16.2) Hematocrit 39.8 % (36.0-46.0) Mean Corpuscular Volume 87.4 fL (80.0-100.0) Mean Corpuscular Hemoglobin 29.5 pg (28.0-32.0) Mean Corpuscular Hemoglobin Concent 33.7 g/dL (32.0-36.0) Red Cell Distribution Width 13.3 % (11.8-14.3) Platelet Count 213 10^3/uL (140-450) Mean Platelet Volume 8.6 fL (6.9-10.8) Neutrophils (%) (Auto) 60.6 % (37.0-80.0) Lymphocytes (%) (Auto) 31.1 % (10.0-50.0) Monocytes (%) (Auto) 7.4 % (0.0-12.0) Eosinophils (%) (Auto) 0.4 % (0.0-7.0) Basophils (%) (Auto) 0.5 % (0.0-2.0) Neutrophils # (Auto) 3.1 10 ^3/uL (1.6-8.6) Lymphocytes # (Auto) 1.6 10 ^3/uL (0.4-5.4) Monocytes # (Auto) 0.4 10 ^3/uL (0-1.3) Eosinophils # (Auto) 0 10 ^3/uL (0-0.8) Basophils # (Auto) 0 10 ^3/uL (0-0.2) Nucleated Red Blood Cells 0.2 % Sodium Level 140 mmol/L (136-145) Potassium Level 3.7 mmol/L (3.5-5.1) Chloride Level 107 mmol/L (98-107) Carbon Dioxide Level 25 mmol/L (20-31) Anion Gap 8 (5-15) Blood Urea Nitrogen 8 mg/dL (9-23) Creatinine 0.80 mg/dL (0.550-1.02) Glomerular Filtration Rate Calc 93 mL/min (>90) BUN/Creatinine Ratio 10.0 (10.0-20.0) Serum Glucose 166 mg/dL (74-106) Calcium Level 9.9 mg/dL (8.7-10.4) Total Bilirubin 1.5 mg/dL (0.2-1.0) Aspartate Amino Transferase (AST) 21 U/L (13-40) Alanine Aminotransferase (ALT) 27 U/L (7-40) Alkaline Phosphatase 82 U/L (46-116) Total Protein 6.7 g/dL (5.7-8.2) Albumin 4.2 g/dL (3.2-4.8) Troponin I High Sensitivity < 3 ng/L (</=34) Urine Color Colorless (Yellow) Urine Clarity Clear (Clear) Urine pH 5.5 (5.0-9.0) Urine Specific [place] 1.002 (1.001-1.035) Urine Protein Negative (Negative) Urine Ketones Negative (Negative) Urine Blood Negative /uL (Negative) Urine Nitrite Negative (Negative) Urine Bilirubin Negative (Negative) Urine Urobilinogen Normal mg/dL (Negative) Urine Leukocyte Esterase Trace /uL (Negative) Urine RBC <1 /hpf (0 - 4) Urine Microscopic WBC 1 /HPF (0-5) Urine Squamous Epithelial Cells Few /hpf (<5) Urine Bacteria None seen /hpf (None Seen) Urine Glucose Normal mg/dL (Normal) Urine Opiates Screen Neg (NEGATIVE) Urine Fentanyl Screen Neg (NEGATIVE) Urine Barbiturates Screen Neg (NEGATIVE) Urine Phencyclidine Screen Neg (NEGATIVE) Urine Amphetamines Screen Neg (NEGATIVE) Urine Benzodiazepines Screen Neg (NEGATIVE) Urine Cocaine Screen Neg (NEGATIVE) Urine Cannabinoids Screen Neg (NEGATIVE) Test 08/29/24 09:37 D-Dimer, Quantitative 0.32 mg/L FEU (0.0-0.49) Hemoglobin A1c 7.4 % A1C (<5.7) Triglycerides Level 197 mg/dL (< 150) Cholesterol Level 175 mg/dL (< 200) LDL Cholesterol 108 mg/dL (< 100) HDL Cholesterol 44 mg/dL (40-59) Thyroid Stimulating Hormone (TSH) 2.76 uIU/mL (0.55-4.78) Other Laboratory Tests 08/30/24 05:49 Brief Hx & Hospital Course: 54-year-old female with a history of [place] myocardial bridging [place] [facility] [place] history of seizure on Lamictal history of DVT on Eliquis ran out of Eliquis came in complaining of chest pain troponin negative x3 possible drug- induced ischemia 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 Patient was placed back on Eliquis for DVT ultrasound done during this visit negative for left upper extremity or left lower extremity DVT. Patient cleared for discharge by Cardiology and patient wants to go home. Discharged home. Prescription for Eliquis Lamictal transmitted to the pharmacy Consults/Reason for consult Cardiology Dr. 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 Smith Resume all previous home medication Medications: Eliquis Lamictal Transmitted to the pharmacy 35 (Time Taken for discharge summary 35 minutes) Discharge Statement: "Patient was advised to return to the ER or call 911 if any headaches, dizziness, shortness of breath, chest pain, abdominal pain, bleeding, fevers, or worsening of medical condition. Patient was counseled about treatment plan, medications, possible side effects, patientverbalized understanding. All questions were answered to the best of my ability. 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
--- NOTE | 2024-09-01 14:28 | DVHPN2 ---
Progress Note - Dictate Date Seen: Sep 01, 2024 Medical Necessity Reason Pt with a Central, PICC or Fol: No Subjective PT WITH HX OF MYOCARDIAL BRIDGE NOW WITH CP SHE HAD [place]ERG[place] LHC[place] [facility] [place] MYOCARDIAL BRIDGE TROPONIN NEGATIVE TOX SCREEN NEGATIVE HXOF SEIZURES DIABETES NPHROPATHY NEUROPATHY vital signs Vital Sign Date Time Temp Pulse Resp B/P (MAP) Pulse Ox O2 Delivery O2 Flow Rate FiO2 09/01/24 10:36 103 110/70 09/01/24 09:00 97.6 18 98 97.6 09/01/24 08:00 Room Air* 0 21 Total Intake and Output 08/31/24 08/31/24 09/01/24 15:00 23:00 07:00 Intake Total 718 ml 850 ml Balance 718 ml 850 ml medications Current Medications Medications Dose Ordered Sig/Liset Route Start Time Stop Time Status Last Admin Dose Admin Nitroglycerin 0.4 mg Q5MINP PRN SL 08/29/24 16:00 UNV laboratory and microbiology Laboratory Tests 08/30/24 05:49 Test 08/30/24 05:49 Range/Units Serum Glucose 166 H 74-106 mg/dL Problem List HX OF MYOCARDIAL BRIDGE NOW WITH CP SHE HAD UNDERGONE LHC/ [place] [facility] [place]FIRMING MYOCARDIAL BRIDGE TROPONIN NEGATIVE TOX SCREEN NEGATIVE HXOF SEIZURES DIABETES NPHROPATHY NEUROPATHY Assessment/Plan TITRATE BETA AINSLEY MAY DC HOME Plan discussed with: Patient DARLENE ELDRIDGE MD Sep 01, 2024 14:28
--- NOTE | 2024-09-06 14:09 | DVHSR ---
APPROVED REPORT EXAM: Two-dimensional and M-mode echocardiogram with Doppler and color Doppler. Blood Pressure: 95/53 mmHg INDICATION Chest Pain RISK FACTORS Obesity: Height: 5' 8", Weight: 257 DIMENSIONS LVDd4.8 (3.8-5.7cm)LA (2D)4.0 (1.9-4.0cm)Aortic Root2.9 (2.0-3.7cm) LVDs3.5 (2.5-4.0cm)LA (MM) (1.9-4.0cm)Aortic Cusp Exc1.8 (1.5-2.0cm) EF (%) 55.0 (55-70%)Rt. Atrium3.9 (1.9-4.0cm)Asc. Aorta cm IVSd1.0 (0.7-1.1cm)RV (D) (1.8-2.4cm) PWd0.9 (0.7-1.1cm) Mitral Valve MitralMitral Stenosis E wave0.70m/sMV Mean GR.mmHg A wave0.90m/sMV Peak GR.mmHg E/A ratio0.82D MVAcm2 Aortic Valve Aortic ValveAortic Stenosis V11.10m/Raudel Mean GR.5mmHg V21.40m/Raudel Peak GR.9mmHg LVOT Diameter2.4 (1.8-2.4cm)Doppler AVA3.55cm2 Pulmonic Valve V20.70m/s Conclusion EF 55%
== END 2024-09-01 13:10 | disposition home or self-care (01) | DRG 307 ==
LOC: ER 09:25 → TELE 15:59 → TELE-WESTW 22:13
PROVIDERS: ADMIT Family Medicine; ATTEND Family Medicine
DX: Q24.5 Malformation of coronary vessels (principal); Z59.00 Homelessness unspecified; I99.8 Other disorder of circulatory system; F17.210 Nicotine dependence, cigarettes, uncomplicated; T50.905A Adverse effect of unspecified drugs, medicaments and biological substances, initial encounter; Z88.5 Allergy status to narcotic agent; Z88.8 Allergy status to other drugs, medicaments and biological substances; Z79.899 Other long term (current) drug therapy; Z90.49 Acquired absence of other specified parts of digestive tract; Z86.718 Personal history of other venous thrombosis and embolism; Z79.01 Long term (current) use of anticoagulants; I25.2 Old myocardial infarction; Y92.89 Other specified places as the place of occurrence of the external cause; E11.21 Type 2 diabetes mellitus with diabetic nephropathy; E11.40 Type 2 diabetes mellitus with diabetic neuropathy, unspecified
CPT/HCPCS: 36415; 70450; 71045; 80048; 80053; 80061; 80307; 81001; 82962; 83036; 84443; 84484; 85025; 85379; 93005; 93306; 93971; G0378; J1815

== ENCOUNTER → 2024-09-13 | Outpatient (CLI) | payer MEDICARE, OTHER ==
[~2024-09-13] MED LIST: APIX5TAB PO; LAM100T PO
--- NOTE | 2024-09-13 16:05 | DVH ---
CLINICAL INDICATION: Pain TECHNIQUE: XY R ANKLE 3 VIEW Comparison: None FINDINGS/IMPRESSION: : There is no evidence of acute fracture or dislocation. Soft tissues are unremarkable. Mild degenerative spurring of the calcaneus.
== END | disposition home or self-care (01) ==
LOC: Rad HDHVI 14:29
PROVIDERS: ATTEND Internal Medicine Cardiovascular Disease
DX: M19.071 Primary osteoarthritis, right ankle and foot (principal); M77.31 Calcaneal spur, right foot; M25.571 Pain in right ankle and joints of right foot
CPT/HCPCS: 73610

== ENCOUNTER 2024-09-29 19:08 | Inpatient (IN) | payer MEDICARE, OTHER ==
[~2024-09-29] VITALS: Ht 172.7 cm; Wt 114.5 kg
--- NOTE | 2024-09-29 19:51 | ED.PDOC ---
Musculoskeletal HPI Comments 44 year old female came to ER via EMS due to BLE swelling. Patient has history of diabetes, CT, Myocardial bridge, DVT left arm/ leg currently on Eliquis. States a week ago noted progressive swelling and "tightness" of bilateral lower extremities. Was admitted at [facility] 2 days ago and diagnostics exams were done. Noted that her right arm started to swell yesterday. Patient was discharged today at [facility] however patient opted to head to [facility] for further management. Chief Complaint: Extremity Swelling Time Seen by MD: 19:50 Reviewed Notes: Transportation Specialist Notes Allergies: Coded Allergies: Hydromorphone (Verified Allergy, Unknown, 08/29/24) Morphine (Verified Allergy, Unknown, 08/29/24) Home Meds Active Scripts Apixaban Base (ELIQUIS) 5 Mg Tab, 5 MG PO BID, #60 TAB Prov:MAIRA CHIU MD 09/01/24 Lamotrigine (Lamictal) 100 Mg Tab, 1 TAB PO DAILY, #30 TAB 1 Refill Prov:MAIRA CHIU MD 09/01/24 Information Source: Patient Mode of Arrival: EMS Location: Bilateral Extremity Location: Arm (rigth), Leg Timing: Days Severity: Moderate Able to Move Extremity: Yes Bear Weight: Limited Pain: Moderate Hand Dominance: Right Mechanism: Spontaneous Circumstances: Spontaneous Onset of Symptoms: Spontaneous Symptoms: Swelling, Pain Associated signs and symptoms: Arm pain (right), Leg pain (bilateral) Past Medical History PAST MEDICAL HISTORY: DM, CT Past Medical History (Other): Myocardial bridge, DVT left leg and left arm, Surgical History: Denies all surgeries CIRCULAR KNITTER History: Denies all CIRCULAR KNITTER Hx Family History Family History: Reviewed,noncontributory to illness Social History Smoker: Non-Smoker Alcohol: Denies ETOH Use Drugs: Denies Drug Use Lives In: Home Constitutional: denies: chills, diaphoresis, fatigue, fever, malaise, sweats, weakness, others EENTM: denies: blurred vision, double vision, ear bleeding, ear discharge, ear drainage, ear pain, ear ringing, eye pain, eye redness, hearing loss, mouth pain, mouth swelling, nasal discharge, nose bleeding, nose congestion, nose pain, photophobia, tearing, throat pain, throat swelling, voice changes, others Respiratory: denies: cough, hemoptysis, orthopnea, SOB at rest, shortness of breath, SOB with excertion, stridor, wheezing, others Cardiovascular: denies: chest pain, dizzy spells, diaphoresis, Dyspnea on exertion, edema, irregular heart beat, left arm pain, lightheadedness, palpit ations, PND, syncope, others Gastrointestinal: denies: abdomen distended, abdominal pain, blood streaked b owels, constipated, diarrhea, dysphagia, difficulty swallowing, hematemesis, melena, nausea, poor appetite, poor fluid intake, rectal bleeding, rectal pain, vomiting, others Genitourinary: denies: abnormal vagina bleeding, burning, dyspareunia, dysuria, flank pain, frequency, hematuria, incontinence, pain, , vagina discharge, urgency, others Neurological: denies: dizziness, fainting, headache, left sided numbness, left sided weakness, numbness, paresthesia, pre-existing deficit, right sided numbness, right sided weakness, seizure, speech problems, tingling, tremors, weakness, others Musculoskeletal: reports: others (BLE swelling, right UE swelling); denies: back pain, gout, joint pain, joint swelling, muscle pain, muscle stiffness, neck pain Integumetry: denies: bruises, change in color, change in hair/nails, dryness, laceration, lesions, lumps, rash, wounds, others Allergic/Immunocompromised: denies: Difficulty Healing, Frequent Infections, Hives, Itching, others Hematologic/Lymphatic: denies: anemia, blood clots, easy bleeding, easy bruising, swollen glands, others Endocrine: denies: excessive hunger, excessive sweating, excessive thirst, excessive urination, flushing, intolerance to cold, intolerance to heat, unexplained weight gain, unexplained weight loss, others Psychiatric: denies: anxiety, bipolar disorder, depression, hopeless, panic disorder, schizophrenia, sleepless, suicidal, others Physical Exam General Appearance: No Apparent Distress, Normal HEENT: Normal ENT Inspection, Pharynx Normal, TMs Normal Neck: Full Range of Motion, Non-Tender, Normal, Normal Inspection Respiratory: Chest Non-Tender, Lungs Clear, No Accessory Muscle Use, No Respiratory Distress, Normal Breath Sounds Cardiovascular: No Edema, No JVD, No Murmur, No Gallop, Normal Peripheral Pulses, Regular Rate/Rhythm Breast Exam: Deferred Gastrointestinal: No Organomegaly, Non Tender, No Pulsatile Mass, Normal Bowel Sounds, Soft Genitalia: Deferred Pelvic: Deferred Rectal: Deferred Extremities: Leg edema (bilateral legs), Normal capillary refill, Normal range of motion, Pedal edema, Swelling (right upper extremity) Musculoskeletal : Apperance: Normal Neurologic: Alert, ride operator II-XII nml as Tested, No Motor Deficits, Normal Affect, Normal Mood, No Sensory Deficits Cerebellar Function: Normal Reflexes: Normal Skin: Dry, Normal Color, Warm Lymphatic: No Adenopathy Was a procedure done? Was a procedure done?: No Differential Diagnosis EXT Differential Diagnosis: Cellulitis, CHF, Deep Vein Thrombosis, Septic X-Ray, Labs, Meds, VS Vital Signs Date Time Temp Pulse Resp B/P (MAP) Pulse Ox O2 Delivery O2 Flow Rate FiO2 09/29/24 23:34 98.0 122 16 153/101 (118) 99 98.0 09/29/24 22:35 145/103 (117) 09/29/24 19:08 98.3 95 18 143/90 (107) 98 Lab Test 09/29/24 20:56 09/29/24 19:43 Range/Units Troponin I High Sensitivity < 3 L < 3 L </=34 ng/L White Blood Count 7.5 4.4-10.8 10^3/uL Red Blood Count 5.02 4.0-5.20 10^6/uL Hemoglobin 14.6 12.2-16.2 g/dL Hematocrit 43.1 36.0-46.0 % Mean Corpuscular Volume 85.8 80.0-100.0 fL Mean Corpuscular Hemoglobin 29.0 28.0-32.0 pg Mean Corpuscular Hemoglobin Concent 33.8 32.0-36.0 g/dL Red Cell Distribution Width 13.3 11.8-14.3 % Platelet Count 256 140-450 10^3/uL Mean Platelet Volume 8.6 6.9-10.8 fL Neutrophils (%) (Auto) 67.7 37.0-80.0 % Lymphocytes (%) (Auto) 26.2 10.0-50.0 % Monocytes (%) (Auto) 5.5 0.0-12.0 % Eosinophils (%) (Auto) 0.2 0.0-7.0 % Basophils (%) (Auto) 0.4 0.0-2.0 % Neutrophils # (Auto) 5.1 1.6-8.6 10 ^3/uL Lymphocytes # (Auto) 2.0 0.4-5.4 10 ^3/uL Monocytes # (Auto) 0.4 0-1.3 10 ^3/uL Eosinophils # (Auto) 0 0-0.8 10 ^3/uL Basophils # (Auto) 0 0-0.2 10 ^3/uL Nucleated Red Blood Cells 0.1 % Sodium Level 138 136-145 mmol/L Potassium Level 4.1 3.5-5.1 mmol/L Chloride Level 103 98-107 mmol/L Carbon Dioxide Level 27 20-31 mmol/L Anion Gap 8 5-15 Blood Urea Nitrogen 10 9-23 mg/dL Creatinine 0.86 0.550-1.02 mg/dL Glomerular Filtration Rate Calc 85 >90 mL/min BUN/Creatinine Ratio 11.6 10.0-20.0 Serum Glucose 181 H 74-106 mg/dL Calcium Level 10.2 8.7-10.4 mg/dL B-Type Natriuretic Peptide 9.17 0-100 pg/mL EXAM: XR Chest, 1 View CLINICAL INDICATION: swelling TECHNIQUE: Frontal view of the chest. COMPARISON: XY CHEST XRAY 1 VIEW on DOS: 08/29/24 FINDINGS: LUNGS AND PLEURAL SPACES: Unremarkable. No consolidation. No pneumothorax. HEART: Unremarkable. No cardiomegaly. MEDIASTINUM: Unremarkable. Normal mediastinal contour. BONES/JOINTS: Unremarkable. No acute fracture. OTHER FINDINGS: . None. IMPRESSION: No acute cardiopulmonary process. Time of 1ST Reevaluation: 19:44 Reevaluation 1ST: Unchanged Patient Education/Counseling: Diagnosis, Treatment Family Education/Counseling: No Family Present Departure 1 Departure Time of Disposition: 00:05 (Patient worsening weakness shortness of breath upper and lower extremity edema. 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 We will admit patient for further workup) Impression: Primary Impression: Lower extremity edema Additional Impressions: Edema of both upper arms Generalized weakness Disposition: ADMITTED INPATIENT Admit to: Med Surg Condition: Serious Critical Care Note Critical Care Time?: No Stability Stability form required: No Heart Score Heart Score: Heart Score Response (Comments) Value History N/A 0 EKG N/A 0 Age N/A 0 Risk Factors N/A 0 Troponin N/A 0 Total 0 I personally scribed for ELBERT RICE MD ([facility]) on 09/29/24 at 19:51. Electronically submitted by Trevor Hidalgo ([facility]). I personally scribed for [facility] on 09/29/24 at 21:48. Electronically submitted by Trevor Hidalgo ([facility]). ELBERT RICE MD Sep 29, 2024 19:51
--- NOTE | 2024-09-29 20:02 | DVH ---
EXAM: XR Chest, 1 View CLINICAL INDICATION: swelling TECHNIQUE: Frontal view of the chest. COMPARISON: XY CHEST XRAY 1 VIEW on DOS: 08/29/24 FINDINGS: LUNGS AND PLEURAL SPACES: Unremarkable. No consolidation. No pneumothorax. HEART: Unremarkable. No cardiomegaly. MEDIASTINUM: Unremarkable. Normal mediastinal contour. BONES/JOINTS: Unremarkable. No acute fracture. OTHER FINDINGS: . None. IMPRESSION: No acute cardiopulmonary process.
[2024-09-29 20:08] LABS: Basophils # (auto) 0 10 ^3/uL (0-0.2); Basophils % (auto) 0.4 % (0.0-2.0); Eosinophils # (auto) 0 10 ^3/uL (0-0.8); Eosinophils % (auto) 0.2 % (0.0-7.0); Hematocrit 43.1 % (36.0-46.0); Hemoglobin 14.6 g/dL (12.2-16.2); Lymphocytes % (auto) 26.2 % (10.0-50.0); Mean Corpuscular Hgb Conc. 33.8 g/dL (32.0-36.0); Mean Corpuscular Volume 85.8 fL (80.0-100.0); Monocytes # (auto) 0.4 10 ^3/uL (0-1.3); Monocytes % (auto) 5.5 % (0.0-12.0); Neutrophils # (auto) 5.1 10 ^3/uL (1.6-8.6); Neutrophils % (auto) 67.7 % (37.0-80.0); Nucleated Red Blood Cells % 0.1 %; Platelet Count (auto) 256 10^3/uL (140-450); Red Blood Cells 5.02 10^6/uL (4.0-5.20); Red Cell Distribution Width 13.3 % (11.8-14.3); White Blood Cell 7.5 10^3/uL (4.4-10.8)
[2024-09-29 20:26] LABS: Chloride 103 mmol/L (98-107); Potassium 4.1 mmol/L (3.5-5.1); Sodium 138 mmol/L (136-145)
[2024-09-29 20:27] LABS: Anion Gap 8 (5-15); Calcium 10.2 mg/dL (8.7-10.4); Carbon Dioxide 27 mmol/L (20-31)
[2024-09-29 20:32] LABS: BUN/Creatinine Ratio 11.6 (10.0-20.0); Blood Urea Nitrogen 10 mg/dL (9-23); Glucose 181 mg/dL (74-106)
[2024-09-30] VITALS (8 sets, daily range): BP systolic 89–125; BP diastolic 42–94; PULSE 66–104; RESP 16–18; TEMP 97.3–98.2; O2SAT 96–100
[2024-09-30] MEDS ORDERED: ONDANSETRON HCL 4 MG/2 ML VIAL IV PRN (03:30)
[2024-09-30] MEDS ORDERED: DOCUSATE SOD 100 MG CAP PO PRN (03:30)
[2024-09-30] MEDS ORDERED: cloNIDine HCL 0.1 MG TAB PO PRN (03:30)
[2024-09-30] MEDS ORDERED: DEXTROSE (50%) 50ML SYRG IV PRN (03:30)
[2024-09-30] MEDS ORDERED: NITROGLYCERIN 0.4 MG SL TAB SL PRN (03:30)
[2024-09-30] MEDS ORDERED: HYDROcodone-ACET 5/325MG TAB PO PRN (03:30)
--- NOTE | 2024-09-30 03:40 | DVHHP2 ---
History of Present Illness Reason for Visit: Lower extremity edema History of Present Illness The patient is a 44-year-old female with multiple past medical history including CO, DM, bipolar disorder and DVT who presented to [facility] ED with complaint of bilateral lower extremity edema. Patient reports progressive swelling and tightness of bilateral lower extremities, getting worse that prompted this visit. Patient was seen and evaluated in the ED, laboratory data shows WBC 7.5, platelets 256, sodium 138, potassium 4.1, BUN 10, creatinine 0.86, GFR 85, glucose 181, troponin < 3, BNP 9.17, blood pressure 153/101, heart rate 122 trending down to 85, temperature 98.0 F, O2 saturation 99% on room air. Chest x-ray show no acute cardiopulmonary process. Please see medication orders section in the computer. On my assessment, patient denied chest pain, no headache, no dizziness, no diaphoresis, no shortness of breath, no nausea, no vomiting, no fever, no chills. Patient was admitted for further evaluation and medical management. Past Medical History DM, seizures, CO, Myocardial bridge, Bipolar disorder, DVT left leg and left arm, Macular degeneration, Past Surgical History Denies all surgeries Family History Reviewed, noncontributory to the management of this case. Past Social History The patient lives at home, denies smoking, alcohol or illicit drugs abuse. Review of Systems Constitutional: No: Fever, Chills, Sweats, Weakness, Malaise, Other Eyes: No: Pain, Vision change, Conjunctivae inflammation, Eyelid inflammation, Other, Redness ENT: No: Ear pain, Ear discharge, Nose pain, Nose discharge, Nose congestion, Mouth pain, Mouth swelling, Throat pain, Throat swelling, Other Respiratory: No: Cough, Dry, Shortness of breath, SOB with excertion, Wheezing, Hemoptysis, Pleuritic Pain, Sputum, Wheezing, Other Cardiovascular: No: Chest Pain, Palpitations, Orthopnea, Paroxysmal Noc. Dyspnea, Edema, Lt Headedness, Other Genitourinary: No Dysuria, No Frequency, No Incontinence, No Hematuria, No Retention, No Other Musculoskeletal: other (Lower extremity edema); No: neck pain, shoulder pain, arm pain, back pain, hand pain, leg pain, foot pain Skin: No: Rash, Lesions, Jaundice, Bruising, Other Neurological: No: Weakness, Numbness, Incoordination, Change in speech, Confusion, Seizures, Other Allergies: Coded Allergies: Hydromorphone (Verified Allergy, Unknown, 08/29/24) Morphine (Verified Allergy, Unknown, 08/29/24) Exam Vital Signs Vital Signs Date Time Temp Pulse Resp B/P (MAP) Pulse Ox O2 Delivery O2 Flow Rate FiO2 09/29/24 23:34 98.0 122 16 153/101 (118) 99 98.0 General Appearance: Alert, Oriented X3, Cooperative, No acute distress HEENT: Atraumatic, PERRLA, EOMI, Mucous membr. moist/pink Respiratory: Clear to auscultation, Normal air movement Cardiovascular: Regular rate, Normal S1, Normal S2, No murmurs Abdominal: Normal bowel sounds, Soft, No tenderness, No hepatospenomegaly, No masses Extremities: No clubbing, No cyanosis, No edema, Normal pulses, Other (Bilateral lower extremity swelling) Skin: No rashes, No breakdown, No significant lesion Neuro: Normal gait, Normal speech, Strength at 5/5 X4 ext, Normal tone, Sensati on intact, Cranial nerves 3-12 NL, Reflexes 2+ Psych/Mental Status: Mental status NL, Mood NL Labs/Xrays Labs Test 09/29/24 20:56 09/29/24 19:43 Range/Units Troponin I High Sensitivity < 3 L </=34 ng/L White Blood Count 7.5 4.4-10.8 10^3/uL Red Blood Count 5.02 4.0-5.20 10^6/uL Hemoglobin 14.6 12.2-16.2 g/dL Hematocrit 43.1 36.0-46.0 % Mean Corpuscular Volume 85.8 80.0-100.0 fL Mean Corpuscular Hemoglobin 29.0 28.0-32.0 pg Mean Corpuscular Hemoglobin Concent 33.8 32.0-36.0 g/dL Red Cell Distribution Width 13.3 11.8-14.3 % Platelet Count 256 140-450 10^3/uL Mean Platelet Volume 8.6 6.9-10.8 fL Neutrophils (%) (Auto) 67.7 37.0-80.0 % Lymphocytes (%) (Auto) 26.2 10.0-50.0 % Monocytes (%) (Auto) 5.5 0.0-12.0 % Eosinophils (%) (Auto) 0.2 0.0-7.0 % Basophils (%) (Auto) 0.4 0.0-2.0 % Neutrophils # (Auto) 5.1 1.6-8.6 10 ^3/uL Lymphocytes # (Auto) 2.0 0.4-5.4 10 ^3/uL Monocytes # (Auto) 0.4 0-1.3 10 ^3/uL Eosinophils # (Auto) 0 0-0.8 10 ^3/uL Basophils # (Auto) 0 0-0.2 10 ^3/uL Nucleated Red Blood Cells 0.1 % Sodium Level 138 136-145 mmol/L Potassium Level 4.1 3.5-5.1 mmol/L Chloride Level 103 98-107 mmol/L Carbon Dioxide Level 27 20-31 mmol/L Anion Gap 8 5-15 Blood Urea Nitrogen 10 9-23 mg/dL Creatinine 0.86 0.550-1.02 mg/dL Glomerular Filtration Rate Calc 85 >90 mL/min BUN/Creatinine Ratio 11.6 10.0-20.0 Serum Glucose 181 H 74-106 mg/dL Calcium Level 10.2 8.7-10.4 mg/dL B-Type Natriuretic Peptide 9.17 0-100 pg/mL PATIENT: PHOEBE JEAN-BAPTISTE ACCT: [id number] UNIT: [id number] : 1980 LOC: ER ROOM / BED: / AGE / SEX: 44 / F ADM STATUS: REG ER SERVICE 29 ORDERING PHYSICIAN: ELBERT RICE MD PROCEDURE(s): CXRP - CHEST PORTABLE REASON: swelling ORDER NUMBER(s): [id number], ACCESSION NUMBER(s): [id number] EXAM: XR Chest, 1 View CLINICAL INDICATION: swelling TECHNIQUE: Frontal view of the chest. COMPARISON: XY CHEST XRAY 1 VIEW on DOS: 08/29/24 FINDINGS: LUNGS AND PLEURAL SPACES: Unremarkable. No consolidation. No pneumothorax. HEART: Unremarkable. No cardiomegaly. MEDIASTINUM: Unremarkable. Normal mediastinal contour. BONES/JOINTS: Unremarkable. No acute fracture. OTHER FINDINGS: None. IMPRESSION: No acute cardiopulmonary process. Assessment/Plan Assessment/Plan Lower extremity edema Edema of both upper arms Generalized weakness Plan 1. Admit to telemetry unit 2. Breathing treatment 3. Pain control management 4. Management of fluids and electrolytes 5. Consultation for hospitalist 6. Diagnostic tests chest x-ray 7. DVT prophylaxis on Lovenox 8. Repeat labs CBC, CMP in a.m. 9. Continue with current medical management 10. Treatment plan discussed with patient and RN. Patient verbalized understanding. Plan discussed with: Patient, Other (RN) My Orders Orders - DEMAR VALENZUELA DNP Procedure Category Date Status Time Complete Blood Count LAB 09/30/24 Logged 04:00 Comprehensive LAB 09/30/24 Logged Metabolic Panel 04:00 Clonidine Hcl Tablet PHA 09/30/24 Logged (Catapres Tablet) 03:30 B-Type Natriuretic LAB 09/30/24 Logged Peptide 03:23 Apixaban (Eliquis) PHA 09/30/24 Logged 10:00 Admit ADMIT 09/30/24 Transmitted 03:23 Allergies ISIDRA 09/30/24 In Process 03:23 Code Status CODE 09/30/24 Transmitted 03:23 Sodium Chloride 0.9% PHA 09/30/24 Logged 03:30 Oxygen Per Hour RT 09/30/24 Transmitted 03:23 Hydrocodone-Acet PHA 09/30/24 Logged 5/325mg Tab ([place] 03:30 Ondansetron Hcl PHA 09/30/24 Logged (Zofran) 03:30 Docusate Sodium PHA 09/30/24 Logged Capsule (Colace 03:30 Complete Blood Count LAB 10/01/24 Verified 04:00 Comprehensive LAB 10/01/24 Verified Metabolic Panel 04:00 Cardiac DIET 09/30/24 Transmitted Diet-2gna,Lofat,Lochol Breakfast Condition: Serious ISIDRA 09/30/24 In Process 03:23 Acetaminophen Tablet PHA 09/30/24 Logged (Tylenol Tablet) 03:30 Bedrest With Bathroom ISIDRA 09/30/24 In Process Privileg 03:23 Nitroglycerin PHA 09/30/24 Logged Sublingual (Ntrostat 03:30 Notify Of Changes ISIDRA 09/30/24 In Process From Base 03:23 Admissions Rn For [facility] 09/30/24 In Process 24 Hours 03:23 Emergency Dysrhythmia ISIDRA 09/30/24 In Process Protocol 03:23 Rhythm Strips Once [facility] 09/30/24 In Process Every Shift 03:23 Oxygen By Nasal RT 09/30/24 Transmitted Cannula 03:23 Lamotrigine Tablet PHA 09/30/24 Logged (Lamictal Tablet) 10:00 Consistent DIET 09/30/24 Transmitted Carb(Ccho)Diabetes Breakfast Glucose Blood PHA 09/30/24 Logged (Accu-Chek Comfort 07:00 Insulin R (Human) PHA 09/30/24 Logged (Insulin R) 22:00 Moderate Insulin Ss PHA 09/30/24 Transmitted 07:00 Dextrose 50% Syringe PHA 09/30/24 Transmitted 03:30 Problem List: (1) Lower extremity edema (2) Generalized weakness (3) Edema of both upper arms Date of Service: Sep 30, 2024 Billing Provider: DEMAR VALENZUELA DNP Common Visit Codes: [id number] INP/OBS CARE (HIGH) DEMAR VALENZUELA DNP Sep 30, 2024 03:40
[2024-09-30] MEDS: SODIUM CHLORIDE 0.9% 1,000 ML IV SCH (04:12)
[2024-09-30] MEDS: ACETAMINOPHEN 325 MG TAB PO PRN (05:36)
[2024-09-30] MEDS: InsuLIN REG 1unit/0.01ml Soln (100units/ml) SC SCH ×2 (06:40→21:24)
[2024-09-30] MEDS: ACCU-CHEK COMFORT CURVE STRIP VI SCH (07:00)
[2024-09-30 08:37] LABS: Basophils # (auto) 0 10 ^3/uL (0-0.2); Basophils % (auto) 0.5 % (0.0-2.0); Eosinophils # (auto) 0 10 ^3/uL (0-0.8); Eosinophils % (auto) 0.1 % (0.0-7.0); Hematocrit 41.2 % (36.0-46.0); Hemoglobin 13.7 g/dL (12.2-16.2); Lymphocytes # (auto) 1.7 10 ^3/uL (0.4-5.4); Lymphocytes % (auto) 23.9 % (10.0-50.0); Mean Corpuscular Hemoglobin 28.7 pg (28.0-32.0); Mean Corpuscular Hgb Conc. 33.3 g/dL (32.0-36.0); Mean Corpuscular Volume 86.1 fL (80.0-100.0); Monocytes # (auto) 0.5 10 ^3/uL (0-1.3); Monocytes % (auto) 6.9 % (0.0-12.0); Neutrophils # (auto) 4.9 10 ^3/uL (1.6-8.6); Neutrophils % (auto) 68.6 % (37.0-80.0); Platelet Count (auto) 227 10^3/uL (140-450); Red Blood Cells 4.78 10^6/uL (4.0-5.20); Red Cell Distribution Width 13.6 % (11.8-14.3); White Blood Cell 7.1 10^3/uL (4.4-10.8)
[2024-09-30 09:07] LABS: Alanine Aminotransferase 38 U/L (7-40); Albumin 4.4 g/dL (3.2-4.8); Alkaline Phosphatase 91 U/L (46-116); Anion Gap 7 (5-15); Aspartate Aminotransferase 26 U/L (13-40); BUN/Creatinine Ratio 13.1 (10.0-20.0); Blood Urea Nitrogen 11 mg/dL (9-23); Calcium 9.9 mg/dL (8.7-10.4); Carbon Dioxide 27 mmol/L (20-31); Chloride 103 mmol/L (98-107); Potassium 3.8 mmol/L (3.5-5.1); Sodium 137 mmol/L (136-145)
[2024-09-30 09:08] LABS: Total Protein 6.8 g/dL (5.7-8.2)
[2024-09-30 09:11] LABS: Bilirubin, Total 1.3 mg/dL (0.2-1.0); Glucose 178 mg/dL (74-106)
[2024-09-30] MEDS: APIXABAN 5 MG TAB PO SCH (09:59)
[2024-09-30] MEDS: lamoTRIgine 100 MG TAB PO SCH (09:59)
[2024-09-30] MEDS: GABAPENTIN 300 MG CAP PO ONE (18:23)
[2024-09-30] MEDS: GABAPENTIN 300 MG CAP PO SCH (21:20)
[2024-10-01] VITALS (8 sets, daily range): BP systolic 104–175; BP diastolic 64–81; PULSE 60–87; RESP 17–20; TEMP 36.3; O2SAT 95–100
[2024-10-01 06:29] LABS: Basophils # (auto) 0 10 ^3/uL (0-0.2); Basophils % (auto) 0.4 % (0.0-2.0); Eosinophils # (auto) 0 10 ^3/uL (0-0.8); Eosinophils % (auto) 0.4 % (0.0-7.0); Hematocrit 40.4 % (36.0-46.0); Hemoglobin 13.8 g/dL (12.2-16.2); Lymphocytes # (auto) 1.8 10 ^3/uL (0.4-5.4); Lymphocytes % (auto) 27.5 % (10.0-50.0); Mean Corpuscular Hemoglobin 29.3 pg (28.0-32.0); Mean Corpuscular Hgb Conc. 34.2 g/dL (32.0-36.0); Mean Corpuscular Volume 85.7 fL (80.0-100.0); Monocytes # (auto) 0.5 10 ^3/uL (0-1.3); Monocytes % (auto) 7.3 % (0.0-12.0); Neutrophils # (auto) 4.1 10 ^3/uL (1.6-8.6); Neutrophils % (auto) 64.4 % (37.0-80.0); Nucleated Red Blood Cells % 0.2 %; Platelet Count (auto) 207 10^3/uL (140-450); Red Blood Cells 4.72 10^6/uL (4.0-5.20); Red Cell Distribution Width 13.7 % (11.8-14.3); White Blood Cell 6.4 10^3/uL (4.4-10.8)
[2024-10-01 07:14] LABS: Alanine Aminotransferase 35 U/L (7-40); Albumin 4.2 g/dL (3.2-4.8); Alkaline Phosphatase 86 U/L (46-116); Anion Gap 12 (5-15); Aspartate Aminotransferase 27 U/L (13-40)
[2024-10-01 07:15] LABS: Total Protein 6.4 g/dL (5.7-8.2)
[2024-10-01 07:54] LABS: Bilirubin, Total 1.4 mg/dL (0.2-1.0); Carbon Dioxide 24 mmol/L (20-31); Chloride 103 mmol/L (98-107); Glucose 190 mg/dL (74-106); Potassium 3.7 mmol/L (3.5-5.1); Sodium 139 mmol/L (136-145)
[2024-10-01 08:08] LABS: BUN/Creatinine Ratio 15.2 (10.0-20.0); Blood Urea Nitrogen 12 mg/dL (9-23)
--- NOTE | 2024-10-01 14:57 | DVHPN2 ---
Subjective declies any chest pain or dyspnea/states though her legs felt swollen but her legs are not Changes from previous H/P or p: No Changes Eyes: No Pain, No Vision change, No Conjunctivae inflammation, No Eyelid inflammation, No Other, No Redness ENT: No Ear pain, No Ear discharge, No Nose pain, No Nose discharge, No Nose congestion, No Mouth pain, No Mouth swelling, No Throat pain, No Throat swelling, No Other Cardiovascular: No Chest Pain, No Palpitations, No Orthopnea, No Paroxysmal Noc. Dyspnea, No Edema, No Lt Headedness, No Other Respiratory: No Cough, No Dry, No Shortness of breath, No SOB with excertion, No Wheezing, No Hemoptysis, No Pleuritic Pain, No Sputum, No Other Genitourinary: No Dysuria, No Frequency, No Incontinence, No Hematuria, No Retention, No Other Musculoskeletal: other (Lower extremity edema); No neck pain, No shoulder pain, No arm pain, No back pain, No hand pain, No leg pain, No foot pain Skin: No Rash, No Lesions, No Jaundice, No Bruising, No Other Objective Vitals Vital Signs Date Time Temp Pulse Resp B/P (MAP) Pulse Ox O2 Delivery O2 Flow Rate FiO2 10/01/24 12:39 97.3 87 20 130/81 (97) 100 97.3 10/01/24 08:10 Room Air* 0 21 Intake/Output Intake and Output 10/01/24 07:00 Intake Total 0 ml Balance 0 ml Intake Oral 0 ml # Voids 4 General Appearance: Alert, Oriented X3, Cooperative, No acute distress Cardiovascular: Regular rate, Normal S1, Normal S2 Abdomen: Normal bowel sounds Musculoskeletal: Normal sensory function, Normal motor function Neuro: Normal gait, Normal speech, Strength at 5/5 X4 ext, Normal tone, S ensation intact, Cranial nerves 3-12 NL Psych/Mental Status: Mental status NL Medications Current Medications Medications Dose Ordered Sig/Liset Route Start Time Stop Time Status Last Admin Dose Admin Clonidine HCl 0.1 mg Q4HP PRN PO 09/30/24 03:30 Apixaban 5 mg BID PO 09/30/24 10:00 10/01/24 08:53 5 MG Sodium Chloride 1,000 ml @ 60 mls/hr [id number] IV 09/30/24 03:30 10/01/24 12:50 60 MLS/HR Acetaminophen/ Hydrocodone Bitart 1 tab Q4HP PRN PO 09/30/24 03:30 Hold Ondansetron HCl 4 mg Q4HP PRN IV 09/30/24 03:30 Docusate Sodium 100 mg BIDPRN PRN PO 09/30/24 03:30 Acetaminophen 650 mg Q6HP PRN PO 09/30/24 03:30 10/01/24 08:53 650 MG Nitroglycerin 0.4 mg Q5MINP PRN SL 09/30/24 03:30 Lamotrigine 100 mg DAILY PO 09/30/24 10:00 10/01/24 09:03 100 MG Diagnostic Test (Pha) 1 strip ACHS 09/30/24 07:00 10/01/24 11:36 1 STRIP Insulin Human Regular HS SC 09/30/24 22:00 09/30/24 21:24 3 UNITS Insulin Human Regular AC SC 09/30/24 07:00 10/01/24 11:37 2 UNITS Dextrose 50 ml UD PRN IV 09/30/24 03:30 Gabapentin 300 mg BID PO 09/30/24 22:00 10/01/24 08:54 300 MG Laboratory Results Laboratory Tests 10/01/24 05:34 Chemistry Test 10/01/24 05:34 Albumin 4.2 g/dL (3.2-4.8) Calcium Level 10.0 mg/dL (8.7-10.4) Total Protein 6.4 g/dL (5.7-8.2) LFT Test 10/01/24 05:34 Alanine Aminotransferase (ALT) 35 U/L (7-40) Alkaline Phosphatase 86 U/L (46-116) Aspartate Amino Transferase (AST) 27 U/L (13-40) Total Bilirubin 1.4 mg/dL (0.2-1.0) H Microbiology Microbiology Date/Time Source Procedure Growth Status 09/30/24 06:50 Nose MRSA Screen - Final Complete Assessment/Plan Assessment/Plan diabetic peripheral neuropathy lumbar radiculopathy-educated/reassured cervical radiculopathy- added gabapentin/educated/reassured myocardial bridge status- 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
--- NOTE | 2024-10-01 15:06 | DVH ---
EXAM: MRI CERVICAL WO CONTRAST HISTORY: tingling in hands COMPARISON: None TECHNIQUE: MRI was performed utilizing multiple appropriate imaging planes and pulse sequences. FINDINGS: CRANIOCERVICAL JUNCTION: The atlanto-dens interval is within normal limits. There is no evidence for significant cerebellar tonsillar ectopia. BONES: Vertebral body heights are preserved. A 1.2 cm benign hemangioma is seen in L2 vertebral body. No acute compression deformities are present. No discrete marrow infiltrative lesion is seen. SPINAL CORD: The spinal cord demonstrates normal signal and morphology throughout its course. No cord edema is present. PARASPINAL SOFT TISSUES: Unremarkable. INTERVERTEBRAL DISCS: C2-C3: No disc herniation, central canal stenosis, or neuroforaminal stenosis. C3-C4: Minimal central disc protrusion without significant central canal stenosis, or neuroforaminal stenosis. C4-C5: No disc herniation, central canal stenosis, or neuroforaminal stenosis. C5-C6: Mild broad-based posterior disc bulge without significant central canal stenosis, or neurofora esteban stenosis. C6-C7: No disc herniation, central canal stenosis, or neuroforaminal stenosis. C7-T1: No disc herniation, central canal stenosis, or neuroforaminal stenosis. IMPRESSION: 1. Straightening of normal lordosis that could be positional, reflect muscle spasm or pain. Correlate clinically. 2. Mild multilevel degenerative disc disease without significant central canal stenosis, neural alejandro trupti stenosis or nerve impingement.
[2024-10-01] MEDS ORDERED: GAB100C GT ×2 (15:58→16:00)
== END 2024-10-01 17:30 | disposition home or self-care (01) | DRG 74 ==
LOC: ER 19:08 → EDUNIT# 19:08 → EDBD 19:08 → OVERFLOW 09-30 03:39 → TELE-CENTR 09-30 06:08
PROVIDERS: ADMIT Internal Medicine; ATTEND Internal Medicine
DX: M54.12 Radiculopathy, cervical region (principal); Q24.5 Malformation of coronary vessels; M54.16 Radiculopathy, lumbar region; E11.42 Type 2 diabetes mellitus with diabetic polyneuropathy; F31.9 Bipolar disorder, unspecified; R56.9 Unspecified convulsions; E66.9 Obesity, unspecified; I25.2 Old myocardial infarction; Z88.5 Allergy status to narcotic agent; Z79.2 Long term (current) use of antibiotics; Z79.899 Other long term (current) drug therapy; Z79.01 Long term (current) use of anticoagulants; Z68.37 Body mass index [BMI] 37.0-37.9, adult
CPT/HCPCS: 36415; 71045; 72141; 80048; 80053; 82607; 82962; 83036; 83735; 83880; 84484; 85025; 87081; G0378; J1815

== ENCOUNTER 2025-04-01 21:53 | Inpatient (IN) | payer OTHER, MEDICAID ==
[~2025-04-01] VITALS: Ht 172.7 cm; Wt 100.0 kg
[~2025-04-01 21:53] MED LIST changes: +GAB100C GT
--- NOTE | 2025-04-01 22:12 | ECG ---
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
[2025-04-01] MEDS: NITROGLYCERIN 2% OINT 1GM PKG TD ONE (22:15)
[2025-04-01 22:24] LABS: Hematocrit 38.5 % (36.0-46.0); Hemoglobin 12.9 g/dL (12.2-16.2); Mean Corpuscular Hemoglobin 28.9 pg (28.0-32.0); Mean Corpuscular Volume 86.1 fL (80.0-100.0); Nucleated Red Blood Cells % 0.0 %
[2025-04-01 22:34] LABS: Chloride 103 mmol/L (98-107); Potassium 3.5 mmol/L (3.5-5.1); Sodium 139 mmol/L (136-145)
[2025-04-01 22:35] LABS: Anion Gap 8 (5-15); Calcium 9.0 mg/dL (8.7-10.4); Carbon Dioxide 28 mmol/L (20-31)
[2025-04-01 22:40] LABS: BUN/Creatinine Ratio 6.3 (10.0-20.0)
[2025-04-01 22:41] LABS: Blood Urea Nitrogen 5 mg/dL (9-23); Glucose 147 mg/dL (74-106)
--- NOTE | 2025-04-01 22:41 | DVH ---
CHEST RADIOGRAPH Indication: sob Technique: 1 view Comparison: XY CHEST PORTABLE on DOS: 09/29/24, XY CHEST XRAY 1 VIEW on DOS: 08/29/24 FINDINGS: Lines and Tubes: None Lungs/Pleura: No focal consolidation, pleural effusion or pneumothorax. Cardiomediastinum: Unremarkable. Other: No acute osseous abnormality. IMPRESSION: 1. No acute cardiopulmonary abnormality.
--- NOTE | 2025-04-01 22:54 | ECG ---
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
[2025-04-01 23:32] VITALS: PULSE 81; RESP 18; O2SAT 100
[2025-04-01] MEDS: FUROSEMIDE 40 MG/4 ML VIAL IV ONE (23:43)
[2025-04-02] VITALS (10 sets, daily range): BP systolic 104–115; BP diastolic 53–75; PULSE 56–94; RESP 16–20; TEMP 97.6–98.6; O2SAT 94–100
--- NOTE | 2025-04-02 00:05 | ED.PDOC ---
History of Present Illness HPI Comments 45 y/o obese F is BIBA for c/c nonradiating, left sided chest pain and bilateral leg swelling. Patients on sudden onset of symptoms after consuming 1x beer, while at a bar, earlier, this evening. Significant history of bipolar disorder, cervical radiculopathy, DVT-on Eliquis, DM with peripheral neuropathy, [place] with cardiac bridge, seizures, and polysubstance abuse. Endorses no recent stressors, strenuous activities, sick contact, injuries, or further pertinent history. Denial of any shortness of breath, palpitations, dizziness, nausea, vomiting, or further associated symptoms. Chief Complaint: Chest Pain Time Seen by MD: 22:00 Reviewed Notes: Nurses Notes, Manual Writer Notes, Medications, Allergies Allergies: Coded Allergies: Hydromorphone (Verified Allergy, Unknown, 08/29/24) Morphine (Verified Allergy, Unknown, 08/29/24) Home Meds Active Scripts Gabapentin (Gabapentin) 100 Mg Cap, 300 MG GT HS, #30 CAP 0 Refills Prov:DAVI KEN MD 10/01/24 Gabapentin (Gabapentin) 100 Mg Cap, 100 MG GT BID, #60 CAP 0 Refills Prov:DAVI KEN MD 10/01/24 Apixaban Base (ELIQUIS) 5 Mg Tab, 5 MG PO BID, #60 TAB Prov:MAIRA CHIU MD 09/01/24 Lamotrigine (Lamictal) 100 Mg Tab, 1 TAB PO DAILY, #30 TAB 1 Refill Prov:MAIRA CHIU MD 09/01/24 Information Source: Patient, Emergency Med Personnel Mode of Arrival: EMS Severity: Moderate Timing: Hours Duration: Since onset Prehospital treatment: 12 Lead EKG, ASA, Extractor Loader And Unloader, NTG Past Medical History PAST MEDICAL HISTORY: DM (Peripheral neuropathy), [place], Seizures Past Medical History (Other): Cervical radiculopathy DVT - on Eliquis Myocardial bridge Bipolar disorder Surgical History: Denies all surgeries CON[facility] WINDER History: Denies all CON[place] WINDER Hx Family History Family History: Reviewed,noncontributory to illness Social History Smoker: Cigarettes Alcohol: Occasionally Drugs: Cocaine Lives In: Home All Other Systems: Reviewed and Negative (Comprehensive systems review obtained and negative except for what is stated in the HPI.) Physical Exam General Appearance: No Apparent Distress, Obese HEENT: Normal ENT Inspection, Pharynx Normal, TMs Normal Neck: Full Range of Motion, Non-Tender, Normal, Normal Inspection Respiratory: Chest Non-Tender, Lungs Clear, No Accessory Muscle Use, No Respiratory Distress, Normal Breath Sounds Cardiovascular: No Edema, No JVD, No Murmur, No Gallop, Normal Peripheral Pulses, Regular Rate/Rhythm Breast Exam: Deferred Gastrointestinal: No Organomegaly, Non Tender, No Pulsatile Mass, Normal Bowel Sounds, Soft Genitalia: Deferred Pelvic: Deferred Rectal: Deferred Extremities: Leg edema (3+ swelling to bilateral lower extremities ), No calf tenderness, Normal capillary refill, Normal range of motion, Non-tender Musculoskeletal : Apperance: Normal Neurologic: Alert, hospital liaison II-XII nml as Tested, No Motor Deficits, Normal Affect, Normal Mood, No Sensory Deficits Cerebellar Function: Normal Reflexes: Normal Skin: Dry, Normal Color, Warm Lymphatic: No Adenopathy Was a procedure done? Was a procedure done?: No EKG EKG #1: Pulse Rate (adult): 94 [place]: Normal Cardiac Rhythm: NSR Block: None Hypertrophy: None ST: Normal Comments No ST changes EKG #2: Pulse Rate (adult): 77 [place]: Normal Cardiac Rhythm: NSR Block: None Hypertrophy: None ST: Normal Comments No ST changes Differential Dx Considerations may include: [place], PE, ACS, URI, anxiety, angina, gastritis, among others X-Ray, Labs, Meds, VS Vital Signs Date Time Temp Pulse Resp B/P (MAP) Pulse Ox O2 Delivery O2 Flow Rate FiO2 04/02/25 00:05 77 12 118/64 (82) 99 04/02/25 00:05 77 04/01/25 23:43 124/70 04/01/25 23:32 81 18 100 Room Air* 0 21 04/01/25 23:32 98.0 81 18 124/70 (88) 100 98.0 04/01/25 22:53 77 04/01/25 22:44 98.4 78 18 107/74 99 98.4 04/01/25 22:15 124/70 04/01/25 22:00 94 Lab Test 04/01/25 23:37 04/01/25 21:55 Range/Units Troponin I High Sensitivity < 3 L < 3 L </=34 ng/L White Blood Count 6.9 4.4-10.8 10^3/uL Red Blood Count 4.47 4.0-5.20 10^6/uL Hemoglobin 12.9 12.2-16.2 g/dL Hematocrit 38.5 36.0-46.0 % Mean Corpuscular Volume 86.1 80.0-100.0 fL Mean Corpuscular Hemoglobin 28.9 28.0-32.0 pg Mean Corpuscular Hemoglobin Concent 33.6 32.0-36.0 g/dL Red Cell Distribution Width 14.6 H 11.8-14.3 % Platelet Count 255 140-450 10^3/uL Mean Platelet Volume 8.7 6.9-10.8 fL Neutrophils (%) (Auto) 56.8 37.0-80.0 % Lymphocytes (%) (Auto) 35.3 10.0-50.0 % Monocytes (%) (Auto) 6.5 0.0-12.0 % Eosinophils (%) (Auto) 0.9 0.0-7.0 % Basophils (%) (Auto) 0.5 0.0-2.0 % Neutrophils # (Auto) 3.9 1.6-8.6 10 ^3/uL Lymphocytes # (Auto) 2.4 0.4-5.4 10 ^3/uL Monocytes # (Auto) 0.4 0-1.3 10 ^3/uL Eosinophils # (Auto) 0.1 0-0.8 10 ^3/uL Basophils # (Auto) 0 0-0.2 10 ^3/uL Nucleated Red Blood Cells 0.0 % Sodium Level 139 136-145 mmol/L Potassium Level 3.5 3.5-5.1 mmol/L Chloride Level 103 98-107 mmol/L Carbon Dioxide Level 28 20-31 mmol/L Anion Gap 8 5-15 Blood Urea Nitrogen 5 L 9-23 mg/dL Creatinine 0.80 0.550-1.02 mg/dL Glomerular Filtration Rate Calc 92 >90 mL/min BUN/Creatinine Ratio 6.3 L 10.0-20.0 Serum Glucose 147 H 74-106 mg/dL Calcium Level 9.0 8.7-10.4 mg/dL Current Medications Medications (Trade) Dose Ordered Sig/Liset Route Start Time Stop Time Status Last Admin Furosemide (Lasix Injection) 40 mg ONCE ONCE IV 04/01/25 22:15 04/01/25 22:16 DC 04/01/25 23:[address] [address] Ph: [phone] DIAGNOSTIC IMAGING Diagnostic Imaging Report : [id number] Signed PATIENT: PHOEBE JEAN-BAPTISTE ACCT: [id number] UNIT: [id number] : 10/01/1979 LOC: ER ROOM / BED: / AGE / SEX: 45 / F ADM STATUS: REG ER SERVICE 09 ORDERING PHYSICIAN: SAVANAH LIZARRAGA MD PROCEDURE(s): CXRP - CHEST PORTABLE REASON: sob ORDER NUMBER(s): [id number], ACCESSION NUMBER(s): [id number] CHEST RADIOGRAPH Indication: sob Technique: 1 view Comparison: XY CHEST PORTABLE on DOS: 09/29/24, XY CHEST XRAY 1 VIEW on DOS: 08/29/24 FINDINGS: Lines and Tubes: None Lungs/Pleura: No focal consolidation, pleural effusion or pneumothorax. Cardiomediastinum: Unremarkable. Other: No acute osseous abnormality. IMPRESSION: 1. No acute cardiopulmonary abnormality. ATED BY: TASNEEM PILLAI MD DICTATED DATE/TIME: 04/01/252238 SIGNED BY: TASNEEM PILLAI MD SIGNED DATE/TIME: 04/01/252238 CC: Time of 1ST Reevaluation: 22:30 Reevaluation 1ST: Unchanged Patient Education/Counseling: Diagnosis, Treatment, Prognosis, Need For Follow Up Family Education/Counseling: No Family Present Comments This is a patient who has a history of cocaine induced angina. She says she stopped using cocaine years ago. However she was at a bar drinking and ambulating on while she was walking to another hospital she started having chest pain, shortness of breath and pedal edema. On examination patient does have 3+ pedal edema however her lungs are clear the cardiac workup he is otherwise unremarkable. However with patient's prior history as well as the new onset pedal edema patient will be admitted for further evaluation for cardiac angina patient does state that she normally gets angina about once a week however this time he seems to be worse than her typical angina Additional Information Previous visits reviewed: August 29, 2024 and September 30, 2024 encounters for chest pain and lower extremity edema, respectively The following tests were ordered, and results were reviewed by me: BNP, CBC, UA, EKG, chest x-ray Additional Information was gathered from interviewing the following independent historians: EMS personnel I reviewed and agreed with the following test results read by other providers: Chest x-ray I discussed treatment and results with medical personnel and: patient SEPSIS Sepsis Screen Date sepsis recognized/suspect: Apr 01, 2025 Time Sepsis recognized/suspect: 2338 Recent Procedure: No On Antibiotic Therapy: No Respiratory Rate >20: No Heart Rate >90: No Temp<36 C (96.8 F) or >38.3 C: No SBP <90 or MAP <65 mmHG: No New Acute Mental Status Change: No Is the patient on CPAP, BIPAP,: No Physician Orders Urinalysis (04/01/25 22:04) Chest Portable (04/01/25 22:10) Vital Signs Date Time Temp Pulse Resp B/P (MAP) Pulse Ox O2 Delivery O2 Flow Rate FiO2 04/02/25 00:05 77 12 118/64 (82) 99 04/02/25 00:05 77 04/01/25 23:43 124/70 04/01/25 23:32 81 18 100 Room Air* 0 21 04/01/25 23:32 98.0 81 18 124/70 (88) 100 98.0 04/01/25 22:53 77 04/01/25 22:44 98.4 78 18 107/74 99 98.4 04/01/25 22:15 124/70 04/01/25 22:00 94 Laboratory Tests Test 04/01/25 21:55 White Blood Count 6.9 10^3/uL (4.4-10.8) Medications Medications Dose Ordered Sig/Liset Route Start Time Stop Time Status Last Admin Dose Admin Furosemide 40 mg ONCE ONCE IV 04/01/25 22:15 04/01/25 22:16 DC 04/01/25 23:43 Departure 1 Departure Time of Disposition: 00:21 Impression: Primary Impression: Unstable angina Disposition: ADMITTED INPATIENT Admit to: Tele Condition: Serious Discharged With: Self Critical Care Note Critical Care Time?: Yes (55 min-critical care time only) Critical care comment: Due to concerns for patients condition deteriorating, the care required my highest level of attention and readiness to intervene. I assessed the patient, reviewed the medical records, ordered the appropriate tests and treatments, then reassessed for results and responsiveness. I communicated with medical personnel and consultants and formulated a plan of care. Total critical care time excludes any procedures Stability Stability form required: No Heart Score Heart Score: Heart Score Response (Comments) Value History Highly Suspicious 2 EKG Normal 0 Age 45-64 1 Risk Factors >3 or Hx ASHD 2 Troponin Normal limit 0 Total 5 I personally scribed for SAVANAH LIZARRAGA MD ([email or web address]) on 04/02/25 at 00:05. Electronically submitted by Von Shetty ([email or web address]). SAVANAH LIZARRAGA MD Apr 02, 2025 00:05
[2025-04-02] MEDS ORDERED: NITROGLYCERIN 0.4 MG SL TAB SL PRN (02:45)
[2025-04-02] MEDS ORDERED: DOCUSATE SOD 100 MG CAP PO PRN (02:45)
[2025-04-02] MEDS ORDERED: ONDANSETRON HCL 4 MG/2 ML VIAL IV PRN (02:45)
[2025-04-02] MEDS: NICOTINE 7MG/24HR TOPICAL PATCH TD ONE (05:00)
[2025-04-02 06:52] LABS: COVID19 ANTIGEN SOFIA FIA NEGATIVE (NEGATIVE)
[2025-04-02 07:19] LABS: Hematocrit 40.1 % (36.0-46.0); Hemoglobin 13.6 g/dL (12.2-16.2); Mean Corpuscular Hemoglobin 29.2 pg (28.0-32.0); Mean Corpuscular Volume 86.2 fL (80.0-100.0); Nucleated Red Blood Cells % 0.0 %
[2025-04-02 07:38] LABS: INR 1.05 (0.9-1.15); Prothrombin Time 11.1 sec (9.3-11.8)
[2025-04-02 07:44] LABS: Alanine Aminotransferase 13 U/L (7-40); Albumin 4.4 g/dL (3.2-4.8); Alkaline Phosphatase 93 U/L (46-116); Anion Gap 10 (5-15); BUN/Creatinine Ratio 6.3 (10.0-20.0); Bilirubin, Total 1.8 mg/dL (0.2-1.0); Blood Urea Nitrogen < 5 mg/dL (9-23); Calcium 9.4 mg/dL (8.7-10.4); Carbon Dioxide 28 mmol/L (20-31); Chloride 101 mmol/L (98-107); Glucose 146 mg/dL (74-106); Potassium 3.3 mmol/L (3.5-5.1); Sodium 139 mmol/L (136-145); Total Protein 6.9 g/dL (5.7-8.2)
--- NOTE | 2025-04-02 08:24 | DVH ---
Bilateral lower extremity venous duplex Clinical History: r/o recurrent DVT Comparison: US LT UPPER DVT on DOS: 08/30/24, US LT LOWER DVT on DOS: 08/30/24 Findings: Duplex Doppler evaluation of the deep venous systems of both lower extremities from the common femora l veins to the popliteal veins including color Doppler and spectral/pulsed waveform analysis was perf ormed. RIGHT SIDE: The common femoral vein demonstrates appropriate compressibility and waveform variability. There is compressibility/patency of the great saphenous vein at the proximal thigh. The femoral vein demonstrates appropriate compressibility and waveform variability. The deep femoral vein demonstrates appropriate compressibility and waveform variability. The popliteal vein demonstrates appropriate compressibility and waveform variability. There is normal compressibility at the tibioperoneal trunk. LEFT SIDE: The common femoral vein demonstrates appropriate compressibility and waveform variability. There is compressibility/patency of the great saphenous vein at the proximal thigh. The femoral vein demonstrates appropriate compressibility and waveform variability. The deep femoral vein demonstrates appropriate compressibility and waveform variability. The popliteal vein demonstrates appropriate compressibility and waveform variability. There is normal compressibility at the tibioperoneal trunk. IMPRESSION: No right or left femoropopliteal venous thrombosis. If clinical concern/symptoms persist or worsen, short-interval follow-up study is suggested. END IMPRESSION:
[2025-04-02] MEDS: APIXABAN 5 MG TAB PO SCH ×2 (08:26→21:36)
[2025-04-02] MEDS: lamoTRIgine 100 MG TAB PO SCH (08:26)
[2025-04-02] MEDS: FAMOTIDINE (10MG/ML) 2ML VL IV SCH (08:26)
[2025-04-02] MEDS: ACETAMINOPHEN 325 MG TAB PO PRN (08:27)
--- NOTE | 2025-04-02 08:27 | DVHHPRES ---
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 The patient rates the chest pain 5 on 10 in intensity pressure like , lasted 20-30 minutes, radiating to the left arm, aggravated on walking and relieved on nitroglycerin. 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, macular degeneration, bipolar disorder, type 2 diabetes mellitus, asthma, pseudoseizures PSHx: Uterine ablation, cholecystectomy Family history: Ovarian cancer in grandmother at the age of 28, wherein cancer in the sister at the age of 41, transient ischemic attack in father and the daughter Social history: Uses alcohol and smokes marijuana, uses cocaine, meth Home medication: Eliquis 5 mg twice daily, lamotrigine 100 mg OD Allergic history: Morphine, Dilaudid Review of Systems Review of Systems General: patient denies fever, fatigue, weaknes, sweating, any recent changes in appetite and weight HEENT: No headaches, visiual changes, hearing loss, tinnitus, nasal congestion and discharge, and sore throat. Cardiovascular: Denies chest pain, palpitations, dyspnea on exertion, orthopnea, or claudication. Respiratory: No cough, and wheezing. Gastrointestinal: Denies nausea, vomiting, dysphagia, odynophagia, heartburn, abdominal pain, flatulence, bloating, diarrhea, constipation, change in stool, or blood in stool. Genitourinary: No dysuria, hematuria, discharge, frequency, urgency, nocturia, incontinence, and urinary retention. Endocrine: No heat or cold intolerance, polydipsia, polyuria, and polyphagia. Neurological: Complains of mild dizziness, no extremity weakness and numbness, tremors, gait disturbance, seizures, and memory impairment. Psychiatric: Denies depression, anxiety,or insomnia. Musculoskeletal: Complains of bilateral lower limb swelling Denies neck pain, stiffness and swelling, back pain, muscle weakness, joint pain, stiffness, or limited range of motion. Skin: No rashes, itching, skin lesion, changes in hair, nail, skin texture and breast. Hematologic/Lymphatic: Denies easy bruising, bleeding tendencies, or lymph node enlargement. Allergies: Coded Allergies: Hydromorphone (Verified Allergy, Unknown, 08/29/24) Morphine (Verified Allergy, Unknown, 08/29/24) Medications Current Medications Medications Dose Ordered Sig/Liset Route Start Time Stop Time Status Last Admin Dose Admin Ondansetron HCl 4 mg Q4HP PRN IV 04/02/25 02:45 Docusate Sodium 100 mg BIDPRN PRN PO 04/02/25 02:45 Acetaminophen 650 mg Q6HP PRN PO 04/02/25 02:45 Nitroglycerin 0.4 mg Q5MINP PRN SL 04/02/25 02:45 Lamotrigine 100 mg DAILY PO 04/02/25 10:00 Famotidine 20 mg Q12HR IV 04/02/25 10:00 Al Hydrox/Mg Hydrox/Simethicone 15 ml Q8HP PRN GT 04/02/25 05:00 Nicotine 1 patch DAILY@0500 TD 04/03/25 05:00 Apixaban 5 mg BID PO 04/02/25 10:00 Exam Vital Signs Vital Signs Date Time Temp Pulse Resp B/P (MAP) Pulse Ox O2 Delivery O2 Flow Rate FiO2 04/02/25 06:36 94 Room Air* 0 21 04/02/25 06:30 98.6 85 16 106/53 (70) 98.6 Exam General Appearance: Alert, Oriented X3, Cooperative, No acute distress HEENT: Atraumatic, PERRLA, EOMI, Mucous membrane moist/pink Respiratory: Clear to auscultation, Normal air movement Cardiovascular: Regular rate, Normal S1, Normal S2, No murmurs, tenderness on the chest-reproducible Abdominal: Normal bowel sounds, Soft, No tenderness, No hepatospenomegaly, No masses Extremities: Bilateral non pitting edema present, No clubbing, No cyanosis, Normal pulses, No tenderness/swelling Skin: No rashes, No breakdown, No significant lesion Neuro: Normal gait, Normal speech, Strength at 5/5 X4 ext, Normal tone, Sensation intact, Cranial nerves 3-12 NL, Reflexes 2+ Psych/Mental Status: Mental status NL, Mood NL Labs/Xrays Labs Test 8/25/25 06:45 04/02/25 05:00 04/01/25 23:37 Range/Units White Blood Count 7.1 4.4-10.8 10^3/uL Red Blood Count 4.65 4.0-5.20 10^6/uL Hemoglobin 13.6 12.2-16.2 g/dL Hematocrit 40.1 36.0-46.0 % Mean Corpuscular Volume 86.2 80.0-100.0 fL Mean Corpuscular Hemoglobin 29.2 28.0-32.0 pg Mean Corpuscular Hemoglobin Concent 33.9 32.0-36.0 g/dL Red Cell Distribution Width 14.2 11.8-14.3 % Platelet Count 249 140-450 10^3/uL Mean Platelet Volume 8.6 6.9-10.8 fL Neutrophils (%) (Auto) 59.3 37.0-80.0 % Lymphocytes (%) (Auto) 31.8 10.0-50.0 % Monocytes (%) (Auto) 7.1 0.0-12.0 % Eosinophils (%) (Auto) 1.3 0.0-7.0 % Basophils (%) (Auto) 0.5 0.0-2.0 % Neutrophils # (Auto) 4.2 1.6-8.6 10 ^3/uL Lymphocytes # (Auto) 2.3 0.4-5.4 10 ^3/uL Monocytes # (Auto) 0.5 0-1.3 10 ^3/uL Eosinophils # (Auto) 0.1 0-0.8 10 ^3/uL Basophils # (Auto) 0 0-0.2 10 ^3/uL Nucleated Red Blood Cells 0.0 % Prothrombin Time 11.1 9.3-11.8 sec Prothrombin Time INR 1.05 0.9-1.15 D-Dimer, Quantitative 0.34 0.0-0.49 mg/L FEU Sodium Level 139 136-145 mmol/L Potassium Level 3.3 L 3.5-5.1 mmol/L Chloride Level 101 98-107 mmol/L Carbon Dioxide Level 28 20-31 mmol/L Anion Gap 10 5-15 Blood Urea Nitrogen < 5 L 9-23 mg/dL Creatinine 0.80 0.550-1.02 mg/dL Glomerular Filtration Rate Calc 92 >90 mL/min BUN/Creatinine Ratio 6.3 L 10.0-20.0 Serum Glucose 146 H 74-106 mg/dL Calcium Level 9.4 8.7-10.4 mg/dL Total Bilirubin 1.8 H 0.2-1.0 mg/dL Aspartate Amino Transferase (AST) 18 13-40 U/L Alanine Aminotransferase (ALT) 13 7-40 U/L Alkaline Phosphatase 93 46-116 U/L C-Reactive Protein High Sensitivity 0.51 <1.0 mg/dL Total Protein 6.9 5.7-8.2 g/dL Albumin 4.4 3.2-4.8 g/dL Plasma/Serum Blood Alcohol < 3.0 <10 mg/dL Influenza Type A Antigen Negative Negative Influenza Type B Antigen Negative Negative SARS-CoV-2 Antigen (Rapid) Negative NEGATIVE Troponin I High Sensitivity < 3 L </=34 ng/L SEPSIS Sepsis Screen Date sepsis recognized/suspect: Apr 01, 2025 Time Sepsis recognized/suspect: 2338 Recent Procedure: No On Antibiotic Therapy: No Respiratory Rate >20: No Heart Rate >90: No Temp<36 C (96.8 F) or >38.3 C: No SBP <90 or MAP <65 mmHG: No New Acute Mental Status Change: No Is the patient on CPAP, BIPAP,: No Physician Orders Admit (04/02/25 02:40) Allergies (04/02/25 02:40) Code Status (04/02/25 02:40) Ondansetron Hcl (Zofran) (04/02/25 02:45) Docusate Sodium Capsule (Colace Capsule) (04/02/25 02:45) Cardiac Diet-2gna,Lofat,Lochol (04/02/25 Breakfast) Echo 2d Mode Cardiac Dop (04/02/25 02:40) Condition: Fair (04/02/25 02:40) Acetaminophen Tablet (Tylenol Tablet) (04/02/25 02:45) Nitroglycerin Sublingual (Ntrostat Subli (04/02/25 02:45) Stat Ekg For Chest Pain (04/02/25 02:40) Notify Md Of Changes From Base (04/02/25 02:40) Tracer Bullet Charging Machine Operator For 24 Hours (04/02/25 02:40) Emergency Dysrhythmia Protocol (04/02/25 02:40) Rhythm Strips Once Every Shift (04/02/25 02:40) Lamotrigine Tablet (Lamictal Tablet) (04/02/25 10:00) Bilat Lower Dvt (04/02/25 04:46) Beta Hcg, Quantitative (04/02/25 04:46) Erythrocyte Sedimentation Rate (04/02/25 04:46) Famotidine Injection (Pepcid Injection) (04/02/25 10:00) Communication Order (04/02/25 04:46) Drug Screen (04/02/25 04:46) Alum & Mag Hydrox-Simethicone (Maalox Pl (04/02/25 05:00) Apixaban (Eliquis) (04/02/25 10:00) Nicotine 7mg/24hr (Nicoderm 7mg/24hr) (04/03/25 05:00) Vital Signs Date Time Temp Pulse Resp B/P (MAP) Pulse Ox O2 Delivery O2 Flow Rate FiO2 04/02/25 06:36 94 Room Air* 0 21 04/02/25 06:30 98.6 85 16 106/53 (70) 95 98.6 04/02/25 05:01 111/72 (85) 04/02/25 05:00 97.6 61 20 106/53 (70) 97.6 04/02/25 04:09 64 04/02/25 02:45 97.9 67 14 108/71 (83) 96 97.9 Laboratory Tests Test 04/01/25 21:55 04/02/25 06:45 White Blood Count 6.9 10^3/uL (4.4-10.8) 7.1 10^3/uL (4.4-10.8) Medications Medications Dose Ordered Sig/Liset Route Start Time Stop Time Status Last Admin Dose Admin Furosemide 40 mg ONCE ONCE IV 04/01/25 22:15 04/01/25 22:16 DC 04/01/25 23:43 40 MG Assessment/Plan Assessment/Plan Chest pain to rule out acute coronary syndrome EKG sinus rhythm Troponin normal Echo ordered History of Acute coronary syndrome History of myocardial bridge Macular degeneration History of DVT PT INR, D-dimer, Doppler scan On Eliquis Bipolar disorder On Lamotrigine Type 2 diabetes mellitus Chronic Asthma Pseudoseizures History of polysubstance abuse Urine drug screen ordered Plan discussed with: Patient My Orders Orders - ALFRED ANDRE Procedure Category Date Status Time Admit ADMIT 04/02/25 Transmitted 02:40 Allergies ISIDRA 04/02/25 In Process 02:40 Code Status CODE 04/02/25 Transmitted 02:40 Ondansetron Hcl [facility] 04/02/25 In Process (Zofran) 02:45 Docusate Sodium PHA 04/02/25 In Process Capsule (Colace 02:45 Cardiac DIET 04/02/25 Transmitted Diet-2gna,Lofat,Lochol Breakfast Echo 2d Mode Cardiac US 04/02/25 Logged DOP 02:40 Condition: Fair ISIDRA 04/02/25 In Process 02:40 Acetaminophen Tablet [facility] 04/02/25 In Process (Tylenol Tablet) 02:45 Nitroglycerin [facility] 04/02/25 In Process Sublingual (Ntrostat 02:45 Stat Ekg For Chest [facility] 04/02/25 In Process Pain 02:40 Notify Md Of Changes [facility] 04/02/25 In Process From Base 02:40 Tracer Bullet Charging Machine Operator For [facility] 04/02/25 In Process 24 Hours 02:40 Emergency Dysrhythmia [facility] 04/02/25 In Process Protocol 02:40 Rhythm Strips Once [facility] 04/02/25 In Process Every Shift 02:40 Lamotrigine Tablet [facility] 04/02/25 In Process (Lamictal Tablet) 10:00 Date of Service: Apr 02, 2025 Billing Provider: ANTONY RETANA MD Common Visit Codes: [id number] INP/OBS CARE (HIGH) Secondary Visit Codes: [id number] CARE PLAN 30 MINUTES ALFRED ANDRE RESIDENT Apr 02, 2025 08:27
--- NOTE | 2025-04-02 09:09 | DVHPNRES ---
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 The patient rates the chest pain 5 on 10 in intensity pressure like , lasted 20-30 minutes, radiating to the left arm, aggravated on walking and relieved on nitroglycerin. 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, macular degeneration, bipolar disorder, type 2 diabetes mellitus, asthma, pseudoseizures PSHx: Uterine ablation, cholecystectomy Family history: Ovarian cancer in grandmother at the age of 28, wherein cancer in the sister at the age of 41, transient ischemic attack in father and the daughter Social history: Uses alcohol and smokes marijuana, uses cocaine, meth Home medication: Eliquis 5 mg twice daily, lamotrigine 100 mg OD Allergic history: Morphine, Dilaudid 04/02/2025 interval events: Patient complaints of mild shortness of breath, dizziness, weakness and reported having swelling on her both upper and lower extremities. The lower extremity skin demonstrated erythematous rashes as well. On physical examination, bilateral wheezing was noted. Levoalbuterol breathing treatment started. Echocardiography was done, results pending. She reports having intermittent chest pain due to her congenital myocardial bridge. She reports having a previous ECT due to bipolar disorder. She denies any fever, abdominal pain, nausea vomiting, diarrhea or any other complaints today. Objective vital signs Vital Sign Date Time Temp Pulse Resp B/P (MAP) Pulse Ox O2 Delivery O2 Flow Rate FiO2 04/02/25 09:00 98.0 80 18 114/71 (85) 97 98.0 04/02/25 06:36 Room Air* 0 21 medications Current Medications Medications Dose Ordered Sig/Liset Route Start Time Stop Time Status Last Admin Dose Admin Ondansetron HCl 4 mg Q4HP PRN IV 04/02/25 02:45 Docusate Sodium 100 mg BIDPRN PRN PO 04/02/25 02:45 Acetaminophen 650 mg Q6HP PRN PO 04/02/25 02:45 04/02/25 08:27 650 MG Nitroglycerin 0.4 mg Q5MINP PRN SL 04/02/25 02:45 Lamotrigine 100 mg DAILY PO 04/02/25 10:00 04/02/25 08:26 100 MG Famotidine 20 mg Q12HR IV 04/02/25 10:00 04/02/25 08:26 20 MG Al Hydrox/Mg Hydrox/Simethicone 15 ml Q8HP PRN GT 04/02/25 05:00 Nicotine 1 patch DAILY@0500 TD 04/03/25 05:00 Apixaban 5 mg BID PO 04/02/25 10:00 04/02/25 08:26 5 MG Examination Pt is lying on bed General Appearance: Alert, Oriented X3, Cooperative, Not in acute distress HEENT: Atraumatic, Mucous membranes moist/pink Respiratory: Clear to auscultation, Normal air movement, No added sounds Cardiovascular: Regular rate, Normal S1, Normal S2, No murmurs Abdominal: Active bowel sounds, Soft, no distention, no tenderness Extremities: No edema, Normal pulses, bilateral upper and lower extremities edema present Skin: rashes over right leg. Neuro: Normal speech, sensorimotor deficits none Psych/Mental Status: Mental status NL, Mood NL Nurse was there as floor layer tile during examination laboratory and microbiology Laboratory Tests 04/02/25 06:45 Test 04/02/25 06:45 Range/Units Serum Glucose 146 H 74-106 mg/dL Labs and/or images reviewed: Labs reviewed by me, Image(s) reviewed by me Problem List/Assessment/Plan Problem List/Assessment/Plan Chest pain to rule out acute coronary syndrome Bilateral leg swelling due to CHF? EKG sinus rhythm Troponin normal Echo ordered, TR present, IVC collapse with respiration History of DVT PT INR, D-dimer, Doppler scan On Eliquis b.i.d. Venous Doppler ultrasound: Negative Bipolar disorder On Lamotrigine Type 2 diabetes mellitus Serum glucose 207 HGB A1c ordered Insulin sliding scale started Mild Asthma exacerbation Levoalbuterol breathing treatments started GI prophylaxis: Not indicated DVT prophylaxis: Eliquis Diet: Diabetic Goals of care discussed with the patient for more than 27 minutes: Full code status Case discussed with Dr. Swift, patient and nurse. Cosigning senior Resident: Vianey Hernández, agree with progress note Plan discussed with: Patient, Other Date of Service: Apr 02, 2025 Billing Provider: NAFISA SWIFT MD Common Visit Codes: [id number] INP/OBS CARE(HIGH) AARON MAY RESIDENT Apr 02, 2025 09:09 VIANEY HERNÁNDEZ RESIDENT Apr 04, 2025 00:06 NAFISA SWIFT MD Apr 05, 2025 22:32
[2025-04-02] MEDS: POTASSIUM EFFERVESENT TAB 25 MEQ PO ONE (13:30)
[2025-04-02] MEDS ORDERED: DEXTROSE (50%) 50ML SYRG IV PRN (18:30)
[2025-04-02 19:35] LABS: Alanine Aminotransferase 15 U/L (7-40); Alkaline Phosphatase 96 U/L (46-116); Anion Gap 7 (5-15); BUN/Creatinine Ratio 9.7 (10.0-20.0); Calcium 9.8 mg/dL (8.7-10.4); Chloride 100 mmol/L (98-107); Potassium 4.6 mmol/L (3.5-5.1); Sodium 140 mmol/L (136-145); Total Protein 6.6 g/dL (5.7-8.2)
[2025-04-02 19:36] LABS: Albumin 4.3 g/dL (3.2-4.8); Bilirubin, Total 1.7 mg/dL (0.2-1.0); Blood Urea Nitrogen 9 mg/dL (9-23); Carbon Dioxide 33 mmol/L (20-31); Glucose 126 mg/dL (74-106); Hematocrit 41.5 % (36.0-46.0); Hemoglobin 13.9 g/dL (12.2-16.2); Mean Corpuscular Hemoglobin 28.8 pg (28.0-32.0); Mean Corpuscular Volume 85.8 fL (80.0-100.0); Nucleated Red Blood Cells % 0.2 %
[2025-04-02] MEDS: ACCU-CHEK COMFORT CURVE STRIP VI SCH (21:38)
[2025-04-02] MEDS: InsuLIN REG 1unit/0.01ml Soln (100units/ml) SC SCH (21:46)
[2025-04-03] VITALS (12 sets, daily range): BP systolic 100–119; BP diastolic 52–76; PULSE 56–101; RESP 14–20; TEMP 97.4–98.6; O2SAT 95–100
[2025-04-03] MEDS: LEVALBUTEROL HCL 1.25 MG/3 ML NEB NEB SCH
[2025-04-03] MEDS: NICOTINE 7MG/24HR TOPICAL PATCH TD SCH (05:00)
--- NOTE | 2025-04-03 09:46 | DVH ---
CLINICAL HISTORY: Family history of ovarian cancer, lower limb lymphedema TECHNIQUE: Ultrasound examination of the female pelvis was performed transabdominal. COMPARISON: None FINDINGS: The uterus measures 8 X 6.3 X 5.2 CM. The myometrial echotexture is heterogeneous. No focal myometri al abnormality is seen. The endometrial lining is normal in thickness, measuring 4 mm. The right ovary measures 3.3 X 1.6 X 2.3 cm. The left ovary measures 3.8 X 2.7 X 2.3 cm. There is a 3.1 cm left ovarian cyst with septation. Normal color doppler flow and vascular waveforms. There is no free fluid. IMPRESSION: 3.1 cm left ovarian cyst with septation.
[2025-04-03 10:16] LABS: Hematocrit 41.4 % (36.0-46.0); Hemoglobin 13.8 g/dL (12.2-16.2); Mean Corpuscular Hemoglobin 28.6 pg (28.0-32.0); Mean Corpuscular Volume 85.7 fL (80.0-100.0); Nucleated Red Blood Cells % 0.1 %
[2025-04-03 10:26] LABS: Anion Gap 6 (5-15); Chloride 100 mmol/L (98-107); Potassium 4.2 mmol/L (3.5-5.1); Sodium 139 mmol/L (136-145)
[2025-04-03 10:27] LABS: Calcium 9.5 mg/dL (8.7-10.4)
[2025-04-03 10:32] LABS: BUN/Creatinine Ratio 9.5 (10.0-20.0); Triglycerides 130 mg/dL (< 150)
[2025-04-03 10:33] LABS: Magnesium 1.6 mg/dL (1.6-2.6)
[2025-04-03 10:34] LABS: Cholesterol 179 mg/dL (< 200); HDL Cholesterol 45 mg/dL (40-59)
[2025-04-03 10:40] LABS: Bilirubin, Total 1.8 mg/dL (0.2-1.0); Blood Urea Nitrogen 8 mg/dL (9-23); Carbon Dioxide 33 mmol/L (20-31); Glucose 160 mg/dL (74-106)
[2025-04-03] MEDS ORDERED: IOHEXOL 300 MG/ML 100ML BOTTLE IJ ONE ×2 (12:06→15:22)
--- NOTE | 2025-04-03 12:08 | DVHSR ---
APPROVED REPORT EXAM: Two-dimensional and M-mode echocardiogram with Doppler and color Doppler. Blood Pressure: 106/53 mmHg INDICATION Rule out structural heart disease RISK FACTORS Obesity: Height: 5'8", Weight: 220 DIMENSIONS LVDd4.7 (3.8-5.7cm)LA (2D)4.1 (1.9-4.0cm)Aortic Root3.2 (2.0-3.7cm) LVDs3.2 (2.5-4.0cm)LA (MM) (1.9-4.0cm)Aortic Cusp Exc1.7 (1.5-2.0cm) EF (%) 60.0 (55-70%)Rt. Atrium4.2 (1.9-4.0cm)Asc. Aorta cm IVSd1.0 (0.7-1.1cm)RV (D) (1.8-2.4cm) PWd1.0 (0.7-1.1cm) Mitral Valve MitralMitral Stenosis E wave0.87m/sMV Mean GR.mmHg A wave0.89m/sMV Peak GR.mmHg E/A ratio1.02D MVAcm2 DECEL [id number] 1/2 Timems Aortic Valve Aortic ValveAortic Stenosis V11.23m/Raudel Mean GR.5mmHg V21.50m/Raudel Peak GR.9mmHg LVOT Diameter2.0 (1.8-2.4cm)Doppler AVA2.57cm2 Pulmonic Valve V21.03m/s Tricuspid Valve TR Velocity2.42m/s [id number] Other Information Technically limited study due to body habitus. Conclusion lvef 60% RV enlargdd , normal function left atrium enlarged mild no severe valve abnormalities noted
--- NOTE | 2025-04-03 14:01 | DVHPN2 ---
Progress Note - Dictate Date Seen: Apr 02, 2026 Medical Necessity Reason Pt with a Central, PICC or Fol: No Subjective PT WITH CHEST PAIN HX OF MUSCLE BRIDGE TROPONIN NEGATIVE HYPOKALEMIA PMH ; HX OF RECURRENT DVT NO ANTICOAGULATION RETINOPATHY MACULAR DEGENERATION DIABETIC RETINOPATHY DIABETES VASCULOPATHY NEUROPATHY RETINOPATHY ASTHMA BIPOLAR DISORDER HX OF TOBACCO/ ETOH/ THC USE HX OF COCAINE USE HX OF METH USE vital signs Vital Sign Date Time Temp Pulse Resp B/P (MAP) Pulse Ox O2 Delivery O2 Flow Rate FiO2 04/03/25 09:45 98 Room Air* 0 21 04/03/25 08:00 73 20 04/03/25 05:30 97.7 103/52 (69) 97.7 Total Intake and Output 04/02/25 04/02/25 04/03/25 15:00 23:00 07:00 Intake Total 200 ml Balance 200 ml medications Current Medications Medications Dose Ordered Sig/Liset Route Start Time Stop Time Status Last Admin Dose Admin Acetaminophen 650 mg Q6HP PRN PO 04/02/25 02:45 04/03/25 09:41 650 MG Lamotrigine 100 mg DAILY PO 04/02/25 10:00 04/03/25 09:41 100 MG Al Hydrox/Mg Hydrox/Simethicone 15 ml Q8HP PRN GT 04/02/25 05:00 Nicotine 1 patch DAILY@0500 TD 04/03/25 05:00 Levalbuterol HCl 0.625 mg Q6HR NEB 04/03/25 00:00 Apixaban 5 mg BID PO 04/02/25 22:00 04/03/25 09:41 5 MG Diagnostic Test (Pha) 1 strip ACHS 04/02/25 22:00 04/03/25 12:03 1 STRIP Insulin Human Regular ACHS SC 04/02/25 22:00 04/03/25 06:30 2 UNITS Dextrose 50 ml UD PRN IV 04/02/25 18:30 laboratory and microbiology Laboratory Tests 04/03/25 09:33 Test 04/03/25 09:33 Range/Units Serum Glucose 160 H 74-106 mg/dL Problem List CHEST PAIN HX OF MUSCLE BRIDGE TROPONIN NEGATIVE HYPOKALEMIA PMH ; HX OF RECURRENT DVT NO ANTICOAGULATION RETINOPATHY MACULAR DEGENERATION DIABETIC RETINOPATHY DIABETES VASCULOPATHY NEUROPATHY RETINOPATHY ASTHMA BIPOLAR DISORDER HX OF TOBACCO/ ETOH/ THC USE HX OF COCAINE USE HX OF METH USE Assessment/Plan TOX SCREEN Plan discussed with: Patient DARLENE ELDRIDGE MD Apr 03, 2025 14:01
--- NOTE | 2025-04-03 14:02 | DVHPN2 ---
Progress Note - Dictate Date Seen: Apr 03, 2025 Medical Necessity Reason Pt with a Central, PICC or Fol: No Subjective PT WITH CHEST PAIN HX OF MUSCLE BRIDGE TROPONIN NEGATIVE HYPOKALEMIA PMH ; HX OF RECURRENT DVT NO ANTICOAGULATION RETINOPATHY MACULAR DEGENERATION DIABETIC RETINOPATHY DIABETES VASCULOPATHY NEUROPATHY RETINOPATHY ASTHMA BIPOLAR DISORDER HX OF TOBACCO/ ETOH/ THC USE HX OF COCAINE USE HX OF METH USE vital signs Vital Sign Date Time Temp Pulse Resp B/P (MAP) Pulse Ox O2 Delivery O2 Flow Rate FiO2 04/03/25 09:45 98 Room Air* 0 21 04/03/25 08:00 73 20 04/03/25 05:30 97.7 103/52 (69) 97.7 Total Intake and Output 04/02/25 04/02/25 04/03/25 15:00 23:00 07:00 Intake Total 200 ml Balance 200 ml medications Current Medications Medications Dose Ordered Sig/Liset Route Start Time Stop Time Status Last Admin Dose Admin Acetaminophen 650 mg Q6HP PRN PO 04/02/25 02:45 04/03/25 09:41 650 MG Lamotrigine 100 mg DAILY PO 04/02/25 10:00 04/03/25 09:41 100 MG Al Hydrox/Mg Hydrox/Simethicone 15 ml Q8HP PRN GT 04/02/25 05:00 Nicotine 1 patch DAILY@0500 TD 04/03/25 05:00 Levalbuterol HCl 0.625 mg Q6HR NEB 04/03/25 00:00 Apixaban 5 mg BID PO 04/02/25 22:00 04/03/25 09:41 5 MG Diagnostic Test (Pha) 1 strip ACHS 04/02/25 22:00 04/03/25 12:03 1 STRIP Insulin Human Regular ACHS SC 04/02/25 22:00 04/03/25 06:30 2 UNITS Dextrose 50 ml UD PRN IV 04/02/25 18:30 laboratory and microbiology Laboratory Tests 04/03/25 09:33 Test 04/03/25 09:33 Range/Units Serum Glucose 160 H 74-106 mg/dL Problem List CHEST PAIN HX OF MUSCLE BRIDGE TROPONIN NEGATIVE HYPOKALEMIA PMH ; HX OF RECURRENT DVT NO ANTICOAGULATION RETINOPATHY MACULAR DEGENERATION DIABETIC RETINOPATHY DIABETES VASCULOPATHY NEUROPATHY RETINOPATHY ASTHMA BIPOLAR DISORDER HX OF TOBACCO/ ETOH/ THC USE HX OF COCAINE USE HX OF METH USE Assessment/Plan TOX SCREEN IF TOX SCREEN IS NEGATIVE WILL CONSIDER [facility] Plan discussed with: Patient DARLENE ELDRIDGE MD Apr 03, 2025 14:02
[2025-04-03] MEDS: LORazepam 0.5 MG TAB PO ONE (16:10)
--- NOTE | 2025-04-03 16:34 | DVH ---
COMPUTERIZED TOMOGRAPHY ABDOMEN AND PELVIS WITHOUT AND WITH CONTRAST REASON FOR EXAM: Ovarian mass COMPARISON: None TECHNIQUE: Axial CT images of the abdomen and pelvis were obtained before and after IV contrast admin istration. 2-D coronal and sagittal reformatted images were provided. Radiation optimization: All CT scans at this facility use at least one of these dose optimization techniques: Automated exposure con trol mA and/or kV adjustment per patient size (includes targeted exams where dose is matched to clini reina indication) or iterative reconstruction. CONTRAST ADMINISTRATION: 100 mL Isovue 300 intravenously RADIATION DOSE: CTDI: 15 mGy DLP: 1668 mGy-cm FINDINGS: The visualized lung bases are grossly clear. There is no pleural effusion. There is no pericardial e ffusion. The liver is within normal limits for size and contour. The portal vein is patent. The gallbladder i s surgically absent. The pancreas is unremarkable. The adrenal glands are normal. The kidneys enhance symmetrically. No solid renal mass is identified. There is no hydronephrosis of either kidney. No pa thologic lymphadenopathy is identified by size criteria. There is no abdominal aortic aneurysm. The urinary bladder is decompressed and is not well evaluated on the current study. The uterus is within normal limits. The right ovary is unremarkable. There is a 3.0 cm left ovarian cyst which demonstrate s no enhancement. There is no free fluid in the abdomen or pelvis. The colonic stool burden is small. The appendix is normal. There is no pathologic distention of the small bowel. No acute osseous abnor mality is identified. There are multiple healing right-sided rib fractures. IMPRESSION: The 3.0 cm left ovarian cyst seen on prior ultrasound shows no enhancement on the current study. No a dnexal mass is identified. Normal appendix Prior cholecystectomy
--- NOTE | 2025-04-03 21:01 | DVHPNRES ---
Progress Note Date Seen: Apr 03, 2025 Resident Creating Document: JULIETH HERNÁNDEZ RESIDENT Medical Necessity Reason Pt with a Central, PICC or Fol: No Subjective Review of Systems Charleen Thompson is a 45-year-old female who presents to the hospital with retrosternal oppressive chest pain which lasted less 30 minutes in intensity 5/10, associated with bilateral infrapatellar nonpitting edema which started one week before her admission. The patient rates the chest pain 5 on 10 in intensity pressure like , lasted 20-30 minutes, radiating to the left arm, aggravated on walking and relieved on nitroglycerin. She had presented to the hospital with the same complaints in previous occasions Past medical history: Diabetic, acute coronary syndrome secondary to myocardial bridge in 2022, multiple DVTs, macular degeneration, bipolar disorder, asthma, seizures, cervical radiculopathy and diabetic peripheral neuropathy. Surgical history: Uterine ablation, cholecystectomy, coronary angiography in 2022 Family history: Ovarian cancer in grandmother at the age of 28, wherein cancer in the sister at the age of 41, transient ischemic attack in father and the daughter Social history: Lives in [place] with family. She admits ethanol, marijuana, cocaine and methamphetamine abuse. She is consuming less than before, last time she consume meth was one month ago. Allergic history: Morphine, Dilaudid Home medication: Eliquis 5 mg twice daily, lamotrigine 100 mg OD, gabapentin Patient seen and examined at bedside. Patient was complaining of cramping pain in right calf, associated hypomagnesemia. Replenish. Due to family history and probable lymphedema, ordered pelvic ultrasound which showed septated cyst in left ovary that measures 3.1 cm. Ordered abdomen and pelvis CT with contrast which shows cysts with no enhancement, no masses identified. Final report of echocardiogram shows LVEF of 60%, RV is enlarged with normal function. Objective vital signs Vital Sign Date Time Temp Pulse Resp B/P (MAP) Pulse Ox O2 Delivery O2 Flow Rate FiO2 04/03/25: 100 Room Air 0.0 04/03/25 19: 21 04/03/25 17:00 97.7 59 20 114/72 (86) 97.7 Total Intake and Output 04/02/25 04/02/25 04/03/25 15:00 23:00 07:00 Intake Total 200 ml Balance 200 ml medications Current Medications Medications Dose Ordered Sig/Liset Route Start Time Stop Time Status Last Admin Dose Admin Acetaminophen 650 mg Q6HP PRN PO 04/02/25 02:45 04/03/25 09:41 650 MG Lamotrigine 100 mg DAILY PO 04/02/25 10:00 04/03/25 09:41 100 MG Al Hydrox/Mg Hydrox/Simethicone 15 ml Q8HP PRN GT 04/02/25 05:00 Nicotine 1 patch DAILY@0500 TD 04/03/25 05:00 Levalbuterol HCl 0.625 mg Q6HR NEB 04/03/25 00:00 Apixaban 5 mg BID PO 04/02/25 22:00 04/03/25 09:41 5 MG Diagnostic Test (Pha) 1 strip ACHS 04/02/25 22:00 04/03/25 16:10 1 STRIP Insulin Human Regular ACHS SC 04/02/25 22:00 04/03/25 06:30 2 UNITS Dextrose 50 ml UD PRN IV 04/02/25 18:30 Magnesium Sulfate/ Dextrose 100 ml @ 100 mls/hr Q1HR IV 04/03/25 21:00 04/03/25 22:59 UNV Examination Patient lying in bed, in no acute distress General: Lucid, afebrile, mucosae are moist Cardiovascular: Normal S1 and S2. No murmurs, gallops or rubs Respiratory: Normal ventilation mechanics. Clear lung sounds on auscultation Abdomen: Soft, nontender, no organomegaly, normal bowel sounds MSK/skin: Mobilizes 4 limbs. Skin is dry and warm. Bilateral infrapatellar nonpitting edema. Neurological: Oriented in 3 spheres. No motor no sensitive deficits. Pupils are isocoric and reactive laboratory and microbiology Laboratory Tests 04/03/25 09:33 Test 04/03/25 09:33 Range/Units Serum Glucose 160 H 74-106 mg/dL Problem List/Assessment/Plan Problem List/Assessment/Plan ASSESSMENT Chest pain probably secondary of muscular bridging Ruled out acute coronary syndrome Ruled out acute CHF Left ovarian cyst Diabetes History of multiple DVTs Bipolar disorder Asthma Seizures Cervical radiculopathy Diabetic peripheral neuropathy PLAN EKG showed no significant ST alteration, troponin x2 negative, BNP negative, no jugular venous distention or other signs of fluid overload. Bilateral lower limb nonpitting edema could be secondary to history of multiple DVTs, patient will benefit from vascular surgery as outpatient. Continue with apixaban due to history of DVT. Current venous ultrasound showed no DVT Patient has history of muscular bridging seen in coronary angiography in 2022, she could benefit from beta-blockers/calcium channel blockers, but her heart rate goes down up to the 50s. Suggest follow up with Cardiology as outpatient. Completed echocardiogram which showed LVEF of 60%, RV enlarged with normal function, left atrium mildly enlarged, no severe valve abnormalities Completed pelvic ultrasound which showed septated cyst in left ovary that measures 3.1 cm. Due to family history of ovarian cancer, ordered tumor markers and abdomen and pelvis CT with contrast which showed 3 cm left ovarian cyst seen on prior ultrasound shows no enhancement on the current study (no adnexal masses identified) Continue lamotrigine for seizure disorder Patient's hemoglobin A1c is 5.9, she does not take any diabetic medication at home, she controls her diabetes with diet. Patient is currently on mild insulin sliding scale. Goals of care discussed with the patient for over 18 minutes: Full code status Case discussed with Dr. Meehan, patient and nurse: Completed complementary workup which ruled out severe cardiac abnormalities, also ruled out ovarian malignancy. Probable cause of lower limb edema could be history of DVT's and venous insufficiency. Recommend follow up as outpatient with vascular surgery. We will monitor kidney function in the a.m. implant her discharged home. Patient should follow up with [facility] as outpatient to evaluate initiation of beta-kathleen/calcium channel blockers due to muscular bridging. Plan discussed with: Patient, Other (Nurses) My Orders My Orders Orders - JULIETH HERNÁNDEZ RESIDENT Procedure Category Date Status Time Urinalysis LAB 04/03/25 Logged 08:33 Drug Screen LAB 04/03/25 Logged 08:33 Pelvic US 04/03/25 Resulted 08:36 Ct Ab Pelvis W Wo CT 04/03/25 Resulted Con-Iv Only 11:34 Ca 125 (Serial) LAB 04/03/25 In Process 11:34 Ca 27.29 LAB 04/03/25 In Process 11:34 Carbohydrate Antigen LAB 04/03/25 In Process 19-9 Magnesium Sulfate PHA 04/03/25 Logged 1gm/100ml 21:00 Date of Service: Apr 03, 2025 Billing Provider: NAFISA MEEHAN MD Common Visit Codes: [id number] INP/OBS CARE(HIGH) JULIETH HERNÁNDEZ RESIDENT Apr 03, 2025 21:01 NAFISA MEEHAN MD Apr 10, 2025 21:25
[2025-04-03] MEDS: MAGNESIUM SULFATE 1GM/100ML 100 ML IV SCH (21:58)
[2025-04-03] MEDS: MAALOX PLUS or MAALOX 30 ML GT PRN (22:12)
[2025-04-03] MEDS: TEMAZEPAM 15 MG CAP PO ONE (23:56)
[2025-04-03] MEDS: DOCUSATE SOD 100 MG CAP PO PRN (23:56)
[2025-04-04 05:00] VITALS: BP 101/70; PULSE 69; RESP 18; TEMP 97.5; O2SAT 94
[2025-04-04 06:22] LABS: Hematocrit 40.5 % (36.0-46.0); Hemoglobin 13.7 g/dL (12.2-16.2); Mean Corpuscular Hemoglobin 28.8 pg (28.0-32.0); Mean Corpuscular Volume 85.4 fL (80.0-100.0); Nucleated Red Blood Cells % 0.1 %
[2025-04-04 06:30] LABS: Chloride 100 mmol/L (98-107); Potassium 4.2 mmol/L (3.5-5.1); Sodium 138 mmol/L (136-145)
[2025-04-04 06:31] LABS: Anion Gap 7 (5-15); Calcium 9.1 mg/dL (8.7-10.4); Carbon Dioxide 31 mmol/L (20-31)
[2025-04-04 06:36] LABS: BUN/Creatinine Ratio 9.8 (10.0-20.0)
[2025-04-04 06:37] LABS: Blood Urea Nitrogen 8 mg/dL (9-23); Glucose 137 mg/dL (74-106); Magnesium 2.1 mg/dL (1.6-2.6)
[2025-04-04 08:00] VITALS: PULSE 58
[2025-04-04 09:00] VITALS: BP 95/60; PULSE 68; RESP 16; TEMP 97.4; O2SAT 98
[2025-04-04] MEDS ORDERED: LEVALBUTEROL HCL 1.25 MG/3 ML NEB NEB PRN (09:30)
[2025-04-04 10:00] VITALS: O2SAT 98
[2025-04-04] MEDS ORDERED: HYDR-3682 PO (11:53)
[2025-04-04] MEDS ORDERED: ACET-1882 PO (11:53)
[2025-04-04 13:00] VITALS: BP 99/55; PULSE 72; RESP 16; TEMP 97.7; O2SAT 96
--- NOTE | 2025-04-04 13:29 | DVHPN2 ---
Progress Note - Dictate Date Seen: Apr 04, 2025 Medical Necessity Reason Pt with a Central, PICC or Fol: No Subjective PT WITH CHEST PAIN HX OF MUSCLE BRIDGE TROPONIN NEGATIVE HYPOKALEMIA PMH ; HX OF RECURRENT DVT NO ANTICOAGULATION RETINOPATHY MACULAR DEGENERATION DIABETIC RETINOPATHY DIABETES VASCULOPATHY NEUROPATHY RETINOPATHY ASTHMA BIPOLAR DISORDER HX OF TOBACCO/ ETOH/ THC USE HX OF COCAINE USE HX OF METH USE vital signs Vital Sign Date Time Temp Pulse Resp B/P (MAP) Pulse Ox O2 Delivery O2 Flow Rate FiO2 04/04/25 10:00 98 Room Air* 0 21 04/04/25 09:00 97.4 68 16 95/60 (72) 97.4 Total Intake and Output 04/03/25 04/03/25 04/04/25 15:00 23:00 07:00 Intake Total 975 ml 560 ml Output Total 3 ml Balance 972 ml 560 ml medications Current Medications Medications Dose Ordered Sig/Liset Route Start Time Stop Time Status Last Admin Dose Admin Acetaminophen 650 mg Q6HP PRN PO 04/02/25 02:45 04/04/25 06:28 650 MG Lamotrigine 100 mg DAILY PO 04/02/25 10:00 04/04/25 08:49 100 MG Al Hydrox/Mg Hydrox/Simethicone 15 ml Q8HP PRN GT 04/02/25 05:00 04/03/25 22:12 15 ML Nicotine 1 patch DAILY@0500 TD 04/03/25 05:00 Apixaban 5 mg BID PO 04/02/25 22:00 04/04/25 08:49 5 MG Diagnostic Test (Pha) 1 strip ACHS 04/02/25 22:00 04/04/25 11:49 1 STRIP Insulin Human Regular ACHS SC 04/02/25 22:00 04/04/25 06:31 2 UNITS Dextrose 50 ml UD PRN IV 04/02/25 18:30 Docusate Sodium 100 mg BIDPRN PRN PO 04/03/25 22:30 04/03/25 23:56 100 MG Levalbuterol HCl 0.625 mg Q6HPRN PRN NEB 04/04/25 09:30 laboratory and microbiology Laboratory Tests 04/04/25 05:43 Test 04/04/25 05:43 Range/Units Serum Glucose 137 H 74-106 mg/dL Problem List CHEST PAIN HX OF MUSCLE BRIDGE TROPONIN NEGATIVE HYPOKALEMIA PMH ; HX OF RECURRENT DVT NO ANTICOAGULATION RETINOPATHY MACULAR DEGENERATION DIABETIC RETINOPATHY DIABETES VASCULOPATHY NEUROPATHY RETINOPATHY ASTHMA BIPOLAR DISORDER HX OF TOBACCO/ ETOH/ THC USE HX OF COCAINE USE HX OF METH USE Assessment/Plan TOX SCREEN IF TOX SCREEN IS NEGATIVE WILL CONSIDER [facility] DISREGARD LHC PT POSITIVE FOR METH PT NON COMPLIANT BELLIGERENT REFUSES MEDICAL ADVICE CHEST PAIN IS SECONDARY TO POLYDRUG USE/ EVERYTIME I HAVE DEALT WITH HER FOR JUSTIFIES WITH EXCUSES FOR NON COMPLIANCE AND DRUG USE THIS TIME IS HER BOYFRIEND WILL SIGN OFF Plan discussed with: Patient DARLENE ELDRIDGE MD Apr 04, 2025 13:29
--- NOTE | 2025-04-04 17:04 | DVHDSRES ---
Discharge Summary Date of Admission Resident Creating Document: AARON MAY Apr 02, 2025 at 02:40 Date of Discharge: Apr 04, 2025 Labs/Diagnostic Data: Laboratory Results Test 04/04/25 11:36 04/04/25 05:43 04/03/25 14:47 04/03/25 09:33 POC Glucose 140 mg/dl (70-106) White Blood Count 6.7 10^3/uL (4.4-10.8) Red Blood Count 4.74 10^6/uL (4.0-5.20) Hemoglobin 13.7 g/dL (12.2-16.2) Hematocrit 40.5 % (36.0-46.0) Mean Corpuscular Volume 85.4 fL (80.0-100.0) Mean Corpuscular Hemoglobin 28.8 pg (28.0-32.0) Mean Corpuscular Hemoglobin Concent 33.8 g/dL (32.0-36.0) Red Cell Distribution Width 14.6 % (11.8-14.3) Platelet Count 231 10^3/uL (140-450) Mean Platelet Volume 8.7 fL (6.9-10.8) Neutrophils (%) (Auto) 62.0 % (37.0-80.0) Lymphocytes (%) (Auto) 29.2 % (10.0-50.0) Monocytes (%) (Auto) 7.8 % (0.0-12.0) Eosinophils (%) (Auto) 0.7 % (0.0-7.0) Basophils (%) (Auto) 0.3 % (0.0-2.0) Neutrophils # (Auto) 4.2 10 ^3/uL (1.6-8.6) Lymphocytes # (Auto) 2.0 10 ^3/uL (0.4-5.4) Monocytes # (Auto) 0.5 10 ^3/uL (0-1.3) Eosinophils # (Auto) 0 10 ^3/uL (0-0.8) Basophils # (Auto) 0 10 ^3/uL (0-0.2) Nucleated Red Blood Cells 0.1 % Sodium Level 138 mmol/L (136-145) Potassium Level 4.2 mmol/L (3.5-5.1) Chloride Level 100 mmol/L (98-107) Carbon Dioxide Level 31 mmol/L (20-31) Anion Gap 7 (5-15) Blood Urea Nitrogen 8 mg/dL (9-23) Creatinine 0.82 mg/dL (0.550-1.02) Glomerular Filtration Rate Calc 89 mL/min (>90) BUN/Creatinine Ratio 9.8 (10.0-20.0) Serum Glucose 137 mg/dL (74-106) Calcium Level 9.1 mg/dL (8.7-10.4) Phosphorus Level 3.4 mg/dL (2.4-5.1) Magnesium Level 2.1 mg/dL (1.6-2.6) CA 19-9 Antigen 2 U/mL (0-35) CA 125 Antigen 15.6 U/mL (0.0-38.1) Total Bilirubin 1.8 mg/dL (0.2-1.0) Triglycerides Level 130 mg/dL (< 150) Cholesterol Level 179 mg/dL (< 200) LDL Cholesterol 119 mg/dL (< 100) HDL Cholesterol 45 mg/dL (40-59) Carcinoembryonic Antigen < 0.50 ng/mL (<=5.0) Vitamin B12 Level 331 pg/mL (211-911) Vitamin D 25-Hydroxy 32.8 ng/mL (30.0-100) Thyroid Stimulating Hormone (TSH) 2.08 uIU/mL (0.55-4.78) Beta HCG, Quantitative 0.2 mIU/mL (1.5-4.2) Test 04/02/25 18:48 04/02/25 06:45 04/02/25 05:00 04/01/25 23:37 Hemoglobin A1c 5.9 % A1C (<5.7) Aspartate Amino Transferase (AST) 16 U/L (13-40) Alanine Aminotransferase (ALT) 15 U/L (7-40) Alkaline Phosphatase 96 U/L (46-116) Total Protein 6.6 g/dL (5.7-8.2) Albumin 4.3 g/dL (3.2-4.8) Erythrocyte Sedimentation Rate 11 mm/hr (0-20) Prothrombin Time 11.1 sec (9.3-11.8) Prothrombin Time INR 1.05 (0.9-1.15) D-Dimer, Quantitative 0.34 mg/L FEU (0.0-0.49) C-Reactive Protein High Sensitivity 0.51 mg/dL (<1.0) B-Type Natriuretic Peptide 11.07 pg/mL (0-100) Plasma/Serum Blood Alcohol < 3.0 mg/dL (<10) Influenza Type A Antigen Negative (Negative) Influenza Type B Antigen Negative (Negative) SARS-CoV-2 Antigen (Rapid) Negative (NEGATIVE) Troponin I High Sensitivity < 3 ng/L (</=34) Other Laboratory Tests 04/04/25 05:43 Brief Hx & Hospital Course: 45-year-old female who was admitted to [facility] with complaints of retrosternal compressive chest pain rated 5/10 in intensity, radiating to the left arm and associated with bilateral infrapatellar nonpitting edema. The chest pain lasted 20-30 minutes, was aggravated by walking and relieved by nitroglycerin. 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 Her surgical history included uterine ablation, cholecystectomy and coronary angiography. She also has a significant family history of ovarian cancer and transient ischemic attacks. During her hospital stay, cardiac causes were thoroughly evaluated. EKG showed no significant ST changes, troponins were negative and BNP was within normal limits. Echocardiogram revealed a left ventricular ejection fraction of 60%, an enlarged right ventricle with normal function and mildly enlarged left atrium without severe valvular abnormalities. Acute coronary syndrome and congestive heart failure by ruled out. Given her history of myocardial bridging, outpatient cardiology follow up was recommended to evaluate the potential initiation of beta-blockers and calcium channel blockers. The patient's lower limb edema was evaluated with venous ultrasound, which showed no current DVT. However due to her history of multiple DVTs, the edema was likely secondary to chronic venous insufficiency. She was continued on apixaban and referred for outpatient vascular surgery evaluation. The pelvic ultrasound revealed a septated cyst in the left ovary measuring 3.[address] scan of the abdomen and pelvis showed no enhancement or adnexal masses. Tumor markers CA 125, CA 19 9 were ordered and are pending. Given her outpatient gynecology follow-up was advised. Her diabetes was well controlled with diet and her hemoglobin A1c was 5.9%. She did not require regular diabetic medications and was managed with a mild insulin sliding scale during hospitalization. Her seizure disorder and bipolar disorder were managed with home medications including lamotrigine, gabapentin and Equetro. She was also treated for hypomagnesemia. The patient has a history of substance use including ethanol marijuana, cocaine and methamphetamine, with the last reported meth use 1 month prior to admission. Goals of care were discussed with the patient for over 18 minutes, and she remains full code. The case were reviewed with Dr. Alarcon the patient and the nursing staff. After completing a comprehensive workup that ruled out severe cardiac and gynecologic pathology, the patient was deemed stable for discharge. She was advised to follow up with Cardiology,vascular surgery and Gynecology as an outpatient for continued evaluation and management. Operations or Procedures Pelvic ultrasound: Septated cyst in left ovary measuring 3.[address] abdomen and pelvis with contrast: Left ovarian cyst, no enhancement no adnexal masses Echocardiogram LV ejection fraction 60%, RV enlargement with normal function mildly enlarged left atrium Tumor marker CA 125 CA 27.29 ordered and results pending. Condition at Discharge: Stable (RN) Final Diagnosis/Problems List Chest Pain ruled out ACS Discharge Disposition: Home Discharge Instruct/Medications Diet: Consistent carbohydrate, Cardiac 2g Na,low cholest Activity: No Restrictions, As Tolerated Follow Up/Referral: Follow up in 2 weeks with PCP Follow up with vascular surgeon Follow up with Cardiology Medications: As per EMR Scheduled Apixaban Base (Eliquis), 5 MG PO BID Gabapentin (Gabapentin), 100 MG GT BID Gabapentin (Gabapentin), 300 MG GT HS Hydroxyzine Hcl (Hydroxyzine Hcl), 25 MG PO HS Lamotrigine (Lamictal), 1 TAB PO DAILY Scheduled PRN Acetaminophen (Acetaminophen), 650 MG PO Q6HP PRN Discharge Statement: "Patient was advised to return to the ER or call 911 if any headaches, dizziness, shortness of breath, chest pain, abdominal pain, bleeding, fevers, or worsening of medical condition. Patient was counseled about treatment plan, medications, possible side effects, patientverbalized understanding. All questions were answered to the best of my ability. This discharge took greater then 30 minutes in planning, reviewing documentation, counseling the patient, and discussing with other team members." ASSESSMENT ASSESSMENT Assessment Chest Pain ruled out ACS Date of Service: Apr 04, 2025 Billing Provider: NAFISA MEEHAN MD Common Visit Codes: 22517-TCZ/OBS DISCH DAY >30min AARON MAY Apr 04, 2025 17:04 NAFISA MEEHAN MD Apr 10, 2025 21:43
[2025-04-05 10:07] LABS: CA 27.29 17.2 U/mL (0.0-38.6)
== END 2025-04-04 13:48 | disposition home or self-care (01) | DRG 206 ==
LOC: EDBD 21:53 → ER 21:53 → OVERFLOW 04-02 02:40 → TELE-EAST 04-02 18:00
PROVIDERS: ADMIT Student in an Organized Health Care Education/Training Program; ATTEND Internal Medicine
DX: M94.0 Chondrocostal junction syndrome [Tietze] (principal); J45.901 Unspecified asthma with (acute) exacerbation; K21.9 Gastro-esophageal reflux disease without esophagitis; R56.9 Unspecified convulsions; F31.9 Bipolar disorder, unspecified; E11.42 Type 2 diabetes mellitus with diabetic polyneuropathy; E11.319 Type 2 diabetes mellitus with unspecified diabetic retinopathy without macular edema; Z68.33 Body mass index [BMI] 33.0-33.9, adult; E66.9 Obesity, unspecified; Z20.822 Contact with and (suspected) exposure to COVID-19; E83.42 Hypomagnesemia; N83.292 Other ovarian cyst, left side; F17.210 Nicotine dependence, cigarettes, uncomplicated; Z88.5 Allergy status to narcotic agent; Z91.199 Patient's noncompliance with other medical treatment and regimen due to unspecified reason; Z86.718 Personal history of other venous thrombosis and embolism; Z90.49 Acquired absence of other specified parts of digestive tract; Z80.41 Family history of malignant neoplasm of ovary
CPT/HCPCS: 36415; 71045; 74178; 76856; 80048; 80053; 80061; 80320; 82247; 82306; 82378; 82607; 82962; 83036; 83735; 83880; 84100; 84443; 84484; 84702; 85025; 85379; 85610; 85652; 86141; 86300; 86301; 86304; 87426; 87804; 93005; 93306; 93970; 96374; 99291; G0378; J1815; J3490